=== PATIENT | male | born 1975 | race African-American/Black ===

== ENCOUNTER 2017-07-27 09:14 | Outpatient (CLI) | payer OTHER ==
--- NOTE | 2017-07-27 16:08 | MRI Report ---
EXAM: RIGHT KNEE MRI WITHOUT CONTRAST EXAM DATE: 07/27/2017 10:01 AM. CLINICAL HISTORY: Chronic atraumatic knee pain with intermittent swelling. COMPARISON: None. TECHNIQUE: Multiplanar, multisequence T1-weighted and fluid-sensitive sequences of the knee without c ontrast. Other: None. FINDINGS: Cruciate Ligaments: The anterior and posterior cruciate ligaments appear intact. Medial Meniscus: Intact. No tear is identified. Lateral Meniscus: Intact. No tear is identified. Collateral Ligament: The medial and fibular collateral ligaments appear intact. Bones and Articular Surfaces: Slight degree of surface cartilage irregularity in the medial compartme nt. Severe cartilage loss at the lateral aspect of the patellofemoral compartment with prominent elan inal osteophyte formation and patchy subchondral edema. Prominent lateral subluxation of the patella. Small joint effusion. Moderate-sized popliteal cyst. Ossified body within the posterior joint midlin e appears at least partially fused to the posterior lateral aspect of the medial tibial plateau. Appr oximately 0.8 x 1.8 x 2.0 cm. Extensor Mechanism: The patellar tendon and quadriceps insertion appear intact. Patella serenity. Edema w ithin the lateral infrapatellar fat. IMPRESSION: 1. 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 2. Patellofemoral dysfunction with patella serenity, lateral tracking, chondromalacia and infrapatellar f at pad impingement. [facility] MUSCULOSKELETAL RADIOLOGY SECTION Referring Provider Line: [phone] SITE ID: [id number]
== END 2017-07-27 09:15 | disposition home or self-care (01) ==
LOC: DI 09:14
PROVIDERS: ATTEND Pediatrics
DX: S83.011A Lateral subluxation of right patella, initial encounter (principal); M17.11 Unilateral primary osteoarthritis, right knee; M25.861 Other specified joint disorders, right knee

== ENCOUNTER 2018-01-03 08:41 | Outpatient (CLI) | payer OTHER ==
--- NOTE | 2018-01-03 12:27 | MRI Report ---
EXAM: LEFT KNEE MRI WITHOUT CONTRAST EXAM DATE: 01/03/2018 09:00 AM. CLINICAL HISTORY: Pain in left knee. COMPARISON: None. TECHNIQUE: Multiplanar, multisequence T1-weighted and fluid-sensitive sequences of the knee without c ontrast. Other: None. FINDINGS: Bones: Some marginal osteophytosis seen at the medial aspect of the inferior patellofemoral joint. No fractures.. Articular Cartilage: Some grade 2-3 chondromalacia at the medial aspect of the patellofemoral joint. Some grade 2-3 chondromalacia also seen lateral aspect medial femoral condyle. Lateral compartment is relatively spared. Medial Meniscus: The medial meniscus is intact. Lateral Meniscus: The lateral meniscus is intact. Cruciate Ligaments: The anterior and posterior cruciate ligaments are intact. Collateral Ligaments: The medial collateral and lateral collateral ligamentous structures are intact. Tendons: The quadriceps, patellar, semimembranosus, and popliteus tendons are unremarkable. Musculature: No edema or fatty atrophy. Other: Small joint effusion. Tiny popliteal cyst. No loose bodies. The medial and lateral retinacula are intact. The subcutaneous tissues and fat pads are unremarkable. IMPRESSION: 1. The medial patella shows some grade 2-3 chondromalacia and small amount of marginal arthrosis. Als o noted is some grade 2-3 chondromalacia of the medial femoral condyle. 2. Compressions, collaterals and quadriceps mechanism appear unremarkable. Small joint effusion. No l oose bodies. Tiny popliteal cyst. [facility] MUSCULOSKELETAL RADIOLOGY SECTION Referring Provider Line: [phone] SITE ID: [id number]
== END 2018-01-03 08:42 | disposition home or self-care (01) ==
LOC: DI 08:41
PROVIDERS: ATTEND Orthopaedic Surgery
DX: M22.42 Chondromalacia patellae, left knee (principal); M17.12 Unilateral primary osteoarthritis, left knee; M71.22 Synovial cyst of popliteal space [Baker], left knee

== ENCOUNTER 2020-08-02 09:11 | Outpatient (CLI) | payer BC, OTHER ==
[2020-08-02 12:03] LABS: BASOPHILS % (AUTO) 0.5 %; EOSINOPHILS # (AUTO) 0.1 10^3/uL (0.0-0.7); EOSINOPHILS % (AUTO) 1.8 %; HGB - HEMOGLOBIN 13.7 g/dL (14.0-18.0); LYMPHOCYTES # (AUTO) 1.8 10^3/uL (1.5-3.5); LYMPHOCYTES % (AUTO) 47.4 %; MEAN CORPUSCULAR HEMOGLOBIN 27.8 pg (27.0-31.0); MEAN CORPUSCULAR HGB CONC 32.3 g/dL (32.0-36.0); MONOCYTES # (AUTO) 0.4 10^3/uL (0.0-1.0); MONOCYTES % (AUTO) 10.4 %; NEUTROPHILS # (AUTO) 1.5 10^3/uL (1.5-6.6); NEUTROPHILS % (AUTO) 39.6 %; PLT - PLATELET COUNT 233 10^3/uL (130-450); RED BLOOD COUNT 4.93 10^6/uL (4.70-6.10); RED CELL DISTRIBUTION WIDTH 13.9 % (12.0-15.0); WHITE BLOOD COUNT 3.8 x10^3/uL (4.8-10.8)
[2020-08-02 12:17] LABS: ALBUMIN 4.2 g/dL (3.2-5.5); ALBUMIN/GLOBULIN RATIO 1.2 (1.0-2.2); ALKALINE PHOSPHATASE 36 IU/L (42-121); ALT ALANINE AMINOTRANSFERASE 24 IU/L (10-60); AST ASPARTATE AMINOTRANSFERASE 25 IU/L (10-42); BILIRUBIN,TOTAL 0.7 mg/dL (0.2-1.0); BUN - BLOOD UREA NITROGEN 14 mg/dL (6-20); CALCIUM 9.2 mg/dL (8.5-10.3); CARBON DIOXIDE - CO2 25 mmol/L (21-32); CHLORIDE 102 mmol/L (101-111); CHOL/HDL RATIO 4.1 (<5.0); CHOLESTEROL 268 mg/dL; CREATININE 1.1 mg/dL (0.6-1.2); GLUCOSE 103 mg/dL (70-100); HDL CHOLESTEROL 65 mg/dL; LDL CHOLESTEROL,CALCULATED 189 mg/dL; LDL/HDL RATIO 2.9 (<3.6); SODIUM 137 mmol/L (135-145); TOTAL PROTEIN 7.6 g/dL (6.7-8.2); VLDL CHOLESTEROL 14 mg/dL
== END 2020-08-02 23:59 | disposition home or self-care (01) ==
LOC: LAB.WCP 09:11
PROVIDERS: ATTEND Nurse Practitioner Family
DX: Z00.00 Encounter for general adult medical examination without abnormal findings (principal)
CPT/HCPCS: 36415; 80053; 80061; 83721; 84443; 85025

== ENCOUNTER 2020-10-07 06:30 | Day surgery (SDC) | payer OTHER ==
[2020-10-07] MEDS ORDERED: fentaNYL 250 MCG/5 ML VIAL IVP ONE (06:31)
[2020-10-07] MEDS ORDERED: MIDAZOLAM 2 MG/2 ML VIAL IVP ONE (06:31)
[2020-10-07] MEDS ORDERED: LACTATED RINGERS 1,000 ML IV ONE ×2 (07:09→08:43)
[2020-10-07 09:20] VITALS: BP 141/99
== END 2020-10-07 06:31 | disposition home or self-care (01) ==
LOC: SDS 06:30
PROVIDERS: ATTEND Surgery
PROC: 0DBC8ZZ Excision of Ileocecal Valve, Via Natural or Artificial Opening Endoscopic (ICD-10-PCS; 2020-10-07)
PROC: 0DBL8ZZ Excision of Transverse Colon, Via Natural or Artificial Opening Endoscopic (ICD-10-PCS; 2020-10-07)
PROC: 0DBH8ZZ Excision of Cecum, Via Natural or Artificial Opening Endoscopic (ICD-10-PCS; principal; 2020-10-07 07:30)
DX: Z12.11 Encounter for screening for malignant neoplasm of colon (principal); D12.0 Benign neoplasm of cecum; D12.3 Benign neoplasm of transverse colon; K64.8 Other hemorrhoids
CPT/HCPCS: 45380; 45385; J3010; J7120

== ENCOUNTER 2020-10-11 18:15 | Outpatient (CLI) | payer OTHER ==
--- NOTE | 2020-10-11 10:38 | XRAY Report ---
PROCEDURE: Knee Standing BILAT INDICATIONS: BILATERAL KNEE ARTHRITIS TECHNIQUE: 3 views of the left knee, and 3 views of the right knee. COMPARISON: None. FINDINGS: Bones: No acute fractures or dislocations. No suspicious bony lesions. Tricompartment degenerative arthritis bilaterally. Small osteophytes. Mild bilateral medial compartment joint space loss. Soft tissues: No knee joint effusions. No suspicious soft tissue calcification. IMPRESSION: Mild bilateral knee joint degenerative arthritis. Reviewed by: Jarrod Bangura MD on 10/11/2020 10:36 AM [facility] Approved by: Jarrod Bangura MD on 10/11/2020 10:36 AM PST Station ID: [id number]
== END 2020-10-11 23:59 | disposition home or self-care (01) ==
LOC: DI.N 18:15
PROVIDERS: ATTEND Nurse Practitioner Family
DX: M17.0 Bilateral primary osteoarthritis of knee (principal)

== ENCOUNTER 2020-11-27 07:44 | Outpatient (CLI) | payer OTHER ==
[2020-11-27] MEDS ORDERED: IOVERSOL 320 50 ML VIAL ONE (07:59)
[2020-11-27] MEDS ORDERED: IOVERSOL 320 100 ML VIAL IVP ONE ×2 (07:59→15:23)
--- NOTE | 2020-11-27 09:38 | XRAY Report ---
PROCEDURE: Chest 2 View X-Ray INDICATIONS: BENIGHN NEOPLASM OF LARGE INTESTINE TECHNIQUE: 2 view(s) of the chest. COMPARISON: None. FINDINGS: Surgical changes and devices: None. Lungs and pleura: No pleural effusions or pneumothorax. Lungs are clear. Mediastinum: Mediastinal contours are normal. Heart size is normal. Bones and chest wall: No suspicious bony abnormalities. Soft tissues appear unremarkable. IMPRESSION: Normal for age, no evidence of mass within the lungs, or adenopathy. No contraindication to surgical intervention is seen. Reviewed by: Sergio Terry MD on 11/27/2020 9:36 AM [facility] Approved by: Sergio Terry MD on 11/27/2020 9:36 AM [facility] Station ID: [id number]
--- NOTE | 2020-11-27 12:25 | CT Report ---
PROCEDURE: Abdomen/Pelvis W INDICATIONS: BENIGN NEOPLASM OF LARGE INTESTINE CONTRAST: IV CONTRAST: Optiray 320 ml: 100 PO CONTRAST: Optiray 320 ml50 TECHNIQUE: After the administration of oral and intravenous contrast, 5 mm thick sections acquired from the diap hragms to the symphysis. 5 mm thick coronal and sagittal reformats were acquired. For radiation dos e reduction, the following was used: automated exposure control, adjustment of mA and/or kV accordin g to patient size. COMPARISON: None. FINDINGS: Image quality: Excellent. ABDOMEN: Lung bases: Lung bases are clear. Heart size is normal. Calcified left infrahilar lymph node. Like ly represents chronic granulomatous disease. Solid organs: Liver and spleen are normal in size and enhancement. Gallbladder is unremarkable. Bi liary system is non dilated. Pancreas enhances normally. No adrenal nodules. Kidneys demonstrate n ormal size and enhancement, without hydronephrosis. Peritoneum and bowel: Bowel loops demonstrate normal wall thickness and caliber. No free fluid or a ir. The colonic neoplasm is not clearly identified on the CT images. Sigmoid diverticulosis without e vidence of diverticulitis. Nodes and vessels: No retroperitoneal or mesenteric adenopathy by size criteria. Aorta and inferior vena cava are normal in size. Miscellaneous: No ventral hernias. PELVIS: Genitourinary: Bladder wall thickness is normal. Miscellaneous: No inguinal hernias or adenopathy. Bones: No suspicious bony lesions. No vertebral body compression fractures. Incidental note is made of the presence of a large left paracentral disc protrusion likely impinging on multiple left-sided nerve root structures at L5-S1. IMPRESSION: 1. Incidental note made of a large left paracentral disc protrusion at L5-S1 impinging on multiple le ft-sided nerve root structures. 2. No evidence of metastatic disease. No evidence of acute abdominal process. 3. Sigmoid diverticulosis. Reviewed by: Jarrod Bangura MD on 11/27/2020 12:23 PM PST Approved by: Jarrod Bangura MD on 11/27/2020 12:23 PM PST Station ID: [id number]
[2020-11-27] MEDS ORDERED: IOVERSOL 320 50 ML VIAL PO ONE (15:22)
== END 2020-11-27 07:45 | disposition home or self-care (01) ==
LOC: DI 07:44
PROVIDERS: ATTEND Surgery
DX: D12.6 Benign neoplasm of colon, unspecified (principal); K57.30 Diverticulosis of large intestine without perforation or abscess without bleeding; M51.27 Other intervertebral disc displacement, lumbosacral region
CPT/HCPCS: 36415; 71046; 74177; 80053; 82378; 85025; Q9967

== ENCOUNTER 2020-11-27 07:57 | Outpatient (CLI) | payer OTHER ==
[2020-11-27 08:29] LABS: BASOPHILS % (AUTO) 0.6 %; EOSINOPHILS # (AUTO) 0.1 10^3/uL (0.0-0.7); EOSINOPHILS % (AUTO) 1.7 %; HGB - HEMOGLOBIN 13.5 g/dL (14.0-18.0); LYMPHOCYTES # (AUTO) 1.9 10^3/uL (1.5-3.5); LYMPHOCYTES % (AUTO) 51.9 %; MEAN CORPUSCULAR HEMOGLOBIN 28.1 pg (27.0-31.0); MEAN CORPUSCULAR HGB CONC 32.6 g/dL (32.0-36.0); MEAN CORPUSCULAR VOLUME 86.3 fL (80.0-94.0); MEAN PLATELET VOLUME 10.3 fL (7.4-11.4); MONOCYTES # (AUTO) 0.4 10^3/uL (0.0-1.0); MONOCYTES % (AUTO) 11.9 %; NEUTROPHILS # (AUTO) 1.2 10^3/uL (1.5-6.6); NEUTROPHILS % (AUTO) 33.3 %; PLT - PLATELET COUNT 267 10^3/uL (130-450); WHITE BLOOD COUNT 3.6 x10^3/uL (4.8-10.8)
[2020-11-27 08:48] LABS: ALBUMIN 4.4 g/dL (3.2-5.5); ALBUMIN/GLOBULIN RATIO 1.3 (1.0-2.2); BILIRUBIN,TOTAL 0.6 mg/dL (0.2-1.0); CALCIUM 9.4 mg/dL (8.5-10.3); CREATININE 1.3 mg/dL (0.6-1.2); TOTAL PROTEIN 7.7 g/dL (6.7-8.2)
== END 2020-11-27 07:58 | disposition home or self-care (01) ==
LOC: LAB 07:57
PROVIDERS: ATTEND Surgery
DX: D12.6 Benign neoplasm of colon, unspecified (principal)
CPT/HCPCS: 36415; 80053; 82378; 85025

== ENCOUNTER 2020-12-26 10:05 | Outpatient (CLI) | payer OTHER | END 2020-12-26 10:06 | disposition home or self-care (01) | LOC: LAB 10:05 | PROVIDERS: ATTEND Nurse Practitioner Family | DX: Z01.812 Encounter for preprocedural laboratory examination (principal); Z20.822 Contact with and (suspected) exposure to COVID-19; D12.6 Benign neoplasm of colon, unspecified ==

== ENCOUNTER 2020-12-30 07:45 | Inpatient (IN) | payer OTHER ==
[~2020-12-30 07:45] MED LIST: ACETAMINOPHEN 1,000 MG/100 ML 100 ML IV ONE; CELECOXIB 100 MG CAPSULE PO ONE; CIPROFLOXACIN 400 MG/200 ML 400 MG/200 ML BAG IV ONE; GABAPENTIN 400 MG CAPSULE ONE; HEPARIN 5,000 UNIT/ML VIAL ONE; metroNIDAZOLE 500 MG/100 ML 500 MG/100 ML BAG ONE
[2020-12-30] MEDS ORDERED: LACTATED RINGERS 1,000 ML IV ONE ×3 (08:25→14:03)
[2020-12-30] MEDS ORDERED: BUPIVACAINE 0.5% PF 30 ML VIAL ONE (08:43)
--- NOTE | 2020-12-30 08:55 | ANESTHESIA ---
Pre-Anesthesia VS, & Labs - Diagnosis Sessile ileocecal valve polyp - Procedure colonscopy, Lap right colectomy, possible open Vital Signs: Temp Pulse Resp BP Pulse Ox 36.3 C L 57 L 16 128/81 H 100 12/30/20 07:50 12/30/20 07:50 12/30/20 07:50 12/30/20 07:50 12/30/20 07:50 Height: 6 ft Weight (kg): 113.4 kg Body Mass Index: 33.9 BMI Classification: Obese - NPO >8 hours - Lab Results Current Lab Results: Laboratory Tests 12/30/20 08:26: POC Whole Bld Glucose 102 H Lab results reviewed: Yes Home Medications and Allergies No Known Home Medications 10/04/20 Allergies/Adverse Reactions: Allergies Allergy/AdvReac Type Severity Reaction Status Date / Time No Known Drug Allergies Allergy Verified 12/30/20 08:06 Anes History & Medical History - Anesthetic History Anesthesia Complications: reports: No previous complications Family history of Anesthesia Complications: Denies Family history of Malignant Hyperthermia: Denies - Medical History Cardiovascular: reports: None Pulmonary: reports: Sleep apnea, CPAP use Gastrointestinal: reports: None Urinary: reports: None Musculoskeletal: reports: Osteoarthritis Endocrine/Autoimmune: reports: None Skin: reports: None - Surgical History General: Colonoscopy, Other Exam General: Alert, Oriented x3, Cooperative, No acute distress Dental: WNL Mouth Openin Fingerbreadth Neck Mobility: Normal Mallampati classification: I Respiratory: Lungs clear, Normal breath sounds, No respiratory distress, No accessory muscle use Cardiovascular: Regular rate, Normal S1, Normal S2, No murmurs Plan Anesthesia Type: General, Transverse Abdominis Plane (TAP) Block Regional Block: Per Surgeon's request for Post Op pain control Consent for Procedure(s) Verified and Reviewed: Yes Code Status: Attempt Resuscitation ASA classification: 2-Mild systemic disease Is this case an emergency?: No
[2020-12-30] MEDS ORDERED: MIDAZOLAM 2 MG/2 ML VIAL ONE (09:20)
[2020-12-30] MEDS ORDERED: fentaNYL 100 MCG/2 ML VIAL ONE (09:20)
[2020-12-30] MEDS ORDERED: PROPOFOL 200 MG/20 ML VIAL IVP ONE (09:22)
[2020-12-30] MEDS ORDERED: LIDOCAINE-MPF 2% 5 ML VIAL ONE (09:22)
[2020-12-30] MEDS ORDERED: ROCURONIUM 50 MG/5 ML VIAL ONE ×2 (09:22→12:45)
[2020-12-30] MEDS ORDERED: BUPIVACAINE 0.5% PF 30 ML VIAL INFIL ONE ×2 (09:34)
[2020-12-30] MEDS ORDERED: DEXAMETHASONE 4 MG/ML VIAL ONE (09:44)
[2020-12-30] MEDS ORDERED: ONDANSETRON 4 MG/2 ML VIAL ONE (09:44)
[2020-12-30] MEDS ORDERED: ePHEDrine 50 MG/ML VIAL IVP PRN (09:51)
[2020-12-30] MEDS ORDERED: METOCLOPRAMIDE 10 MG/2 ML VIAL IVP PRN (09:51)
[2020-12-30] MEDS ORDERED: NALOXONE 0.4 MG/ML VIAL IVP PRN (09:51)
[2020-12-30] MEDS ORDERED: ONDANSETRON 4 MG/2 ML VIAL IVP PRN ×2 (09:51→13:29)
[2020-12-30] MEDS ORDERED: fentaNYL 100 MCG/2 ML VIAL IVP PRN (09:51)
[2020-12-30] MEDS ORDERED: HYDROmorphone 0.5 MG/0.5 ML SYRINGE IVP PRN ×2 (09:51→13:29)
[2020-12-30] MEDS ORDERED: ATROPINE ABBOJECT 1 MG/10 ML SYRINGE IVP PRN (09:51)
[2020-12-30] MEDS ORDERED: MORPHINE 2 MG/ML CARPUJECT IVP PRN (09:51)
[2020-12-30] MEDS ORDERED: LACTATED RINGERS 1,000 ML IV SCH (10:00)
[2020-12-30] MEDS ORDERED: HYDROmorphone 1 MG/ML CARPUJECT ONE ×2 (10:37→12:30)
[2020-12-30] MEDS ORDERED: SUGAMMADEX 200 MG/2 ML VIAL IVP ONE (12:55)
[2020-12-30] MEDS ORDERED: ROPIVACAINE 0.5% PF 20 ML AMPULE ONE (13:02)
[2020-12-30] MEDS ORDERED: SODIUM CHLORIDE 0.9% 20 ML ONE (13:04)
[2020-12-30] MEDS ORDERED: ACETAMINOPHEN 1,000 MG/100 ML 100 ML IV ONE (13:29)
[2020-12-30] MEDS ORDERED: oxyCODONE 5 MG TABLET PO PRN (13:29)
--- NOTE | 2020-12-30 13:41 | OPERATIVE REPORT ---
Operative Report - General Procedure Date: 12/30/20 Planned Procedure: 1. Plan combined endoscopic laparoscopic surgical intervention for unresectable ileocecal valve polyp 2. Diagnostic laparoscopy with right colonic mobilization 3. Intraoperative colonoscopy with planned complex polypectomy 4. Umbilical hernia repair Pre-Op Diagnosis: Unresectable ileocecal valve polyp consistent with adenomatous change. Procedure Performed: 1. Diagnostic laparoscopy 2. Combined endoscopic laparoscopic surgery 3. Intraoperative colonoscopy confirming ileocecal valve polyp 4. Right colectomy 5. Intracorporeal side to side isoperistaltic anastomosis 6. Air leak by CO2 insufflation per anus 7. Umbilical hernia repair 8. Tap block by anesthesia Post Op Diagnosis: Unresectable ileocecal valve adenomatous polyp not amendable to endoscopic - Procedure Note Primary Surgeon: Kari Secondary Surgeon: Tripp Anesthesia Provider: Floresita Anesthesia Technique: General ET tube, Local Pathology: 1. Anastomotic margin 2. Terminal ileum cecum appendix and ascending colon Estimated Blood Loss (mL): 50 Drain/Tube Type: Castillo drain Indications: 45-year-old male with ileocecal valve adenomatous polyp not amendable to endoscopic resection Findings: 1. Ileocecal valve adenomatous polyp not amendable to endoscopic resection 2. Patent side to side isoperistaltic functional end-to-end anastomosis 3. Enterotomy/colotomy closed with interrupted traction sutures with Endo MATTHIEU stapler 4. Insufflation with Perina's carbon dioxide revealed a small area of stapler dysfunction that was repaired by interrupted laparoscopic Vicryl 5. Small area stapled for reinforcement with fat not able to be removed laparoscopically 6. Intracorporeal anastomosis with no complication upon final insufflation under saline immersion 7. Extensive irrigation aspirated clear with high ligation of the ileocolic 8. Umbilical hernia repair Complications: NONE - Other Other Information/Narrative: Pending final report
[2020-12-30] MEDS ORDERED: CIPROFLOXACIN 400 MG/200 ML 400 MG/200 ML BAG IV SCH (14:00)
[2020-12-30] MEDS ORDERED: metroNIDAZOLE 500 MG/100 ML 500 MG/100 ML BAG IV SCH (14:00)
--- NOTE | 2020-12-30 14:10 | ANESTHESIA POST OP EVALUATION ---
Anesthesia Post Eval - Post Anesthesia Eval Vitals: Last Vital Signs Temp 36.6 C 12/30/20 13:37 Pulse 93 12/30/20 14:05 Resp 18 12/30/20 14:05 BP 158/108 H 12/30/20 14:05 Pulse Ox 100 12/30/20 14:05 CV Function Including HR & BP: positive: Stable Pain Control: positive: Satisfactory Nausea & Vomiting: positive: Negative Mental Status: positive: Patient Participates Respiratory Status: Airway Patent Hydration Status: Satisfactory
[2020-12-30] MEDS: metroNIDAZOLE 500 MG/100 ML 500 MG/100 ML BAG IV SCH ×2 (15:17→21:08)
[2020-12-30] MEDS: D5NS W/20 MEQ KCL 1,000 ML IV SCH (15:17)
[2020-12-30] MEDS: METOCLOPRAMIDE 10 MG/2 ML VIAL IVP SCH (17:06)
[2020-12-30] MEDS: KETOROLAC 15 MG/ML VIAL IVP SCH (17:08)
[2020-12-30] MEDS: methocarbamoL 500 MG TABLET PO SCH (17:08)
--- NOTE | 2020-12-30 18:26 | PHARMACY PROGRESS NOTE ---
- Best Possible Medication History Admit Date and Time: 12/30/20 133 Processed by: Pharmacy Medication History completed: Yes Patient Interview: Completed Secondary Source(s): Pharmacy records, Insurance records As the person ultimately responsible for medication therapy, providers are able to order a medication from an existing home medication list in [facility] via the "Reconcile Routine" prior to Confirmation of that medication by computer support analyst. Such practice is discouraged except when the physician, in their clinical judgment, deems that a medical need exists for a medication without regard to previous use.
[2020-12-30] MEDS: CIPROFLOXACIN 400 MG/200 ML 400 MG/200 ML BAG IV SCH (19:06)
[2020-12-30] MEDS: DOCUSATE SODIUM 100 MG CAPSULE PO SCH (21:07)
[2020-12-30] MEDS: polyethylene glycoL 3350 17 GM PACKET PO SCH (21:07)
[2020-12-31] MEDS: KETOROLAC 15 MG/ML VIAL IVP SCH ×4 (00:22→17:58)
[2020-12-31] MEDS: METOCLOPRAMIDE 10 MG/2 ML VIAL IVP SCH ×4 (00:22→17:59)
[2020-12-31] MEDS: D5NS W/20 MEQ KCL 1,000 ML IV SCH ×3 (00:22→19:23)
[2020-12-31] MEDS: methocarbamoL 500 MG TABLET PO SCH ×4 (00:22→17:59)
[2020-12-31 05:20] LABS: BASOPHILS % (AUTO) 0.1 %; EOSINOPHILS # (AUTO) 0.2 10^3/uL (0.0-0.7); EOSINOPHILS % (AUTO) 1.9 %; HCT - HEMATOCRIT 38.6 % (42.0-52.0); HGB - HEMOGLOBIN 12.7 g/dL (14.0-18.0); LYMPHOCYTES # (AUTO) 1.3 10^3/uL (1.5-3.5); LYMPHOCYTES % (AUTO) 16.7 %; MEAN CORPUSCULAR HGB CONC 32.9 g/dL (32.0-36.0); MEAN CORPUSCULAR VOLUME 85.2 fL (80.0-94.0); MEAN PLATELET VOLUME 10.4 fL (7.4-11.4); MONOCYTES # (AUTO) 0.6 10^3/uL (0.0-1.0); MONOCYTES % (AUTO) 7.8 %; NEUTROPHILS # (AUTO) 5.9 10^3/uL (1.5-6.6); NEUTROPHILS % (AUTO) 73.3 %; PLT - PLATELET COUNT 218 10^3/uL (130-450); RED BLOOD COUNT 4.53 10^6/uL (4.70-6.10); RED CELL DISTRIBUTION WIDTH 14.3 % (12.0-15.0)
[2020-12-31 05:32] LABS: ALBUMIN 3.9 g/dL (3.2-5.5); ALBUMIN/GLOBULIN RATIO 1.3 (1.0-2.2); BILIRUBIN,TOTAL 0.6 mg/dL (0.2-1.0); CALCIUM 8.4 mg/dL (8.5-10.3); CREATININE 1.1 mg/dL (0.6-1.2); MAGNESIUM 1.8 mg/dL (1.7-2.8); POTASSIUM 3.2 mmol/L (3.5-5.0); TOTAL PROTEIN 6.8 g/dL (6.7-8.2)
[2020-12-31] MEDS: metroNIDAZOLE 500 MG/100 ML 500 MG/100 ML BAG IV SCH ×3 (06:14→22:10)
[2020-12-31] MEDS: PANTOPRAZOLE 40 MG TABLET PO SCH (07:26)
[2020-12-31] MEDS: polyethylene glycoL 3350 17 GM PACKET PO SCH ×2 (09:15→22:17)
[2020-12-31] MEDS: ENOXAPARIN 40 MG/0.4 ML SYRINGE SUBQ SCH (09:16)
[2020-12-31] MEDS: DOCUSATE SODIUM 100 MG CAPSULE PO SCH ×2 (09:16→22:17)
[2020-12-31] MEDS: CIPROFLOXACIN 400 MG/200 ML 400 MG/200 ML BAG IV SCH ×2 (09:20→20:27)
[2020-12-31] MEDS: POTASSIUM CHLOR 10 MEQ/100 ML 10 MEQ/100 ML BAG IV SCH ×3 (11:06→13:20)
--- NOTE | 2020-12-31 18:55 | PROVIDER PROGRESS NOTE ---
Progress Note Subjective Postoperative day #1 status post attempted CELS procedure converted to laparoscopic right colectomy. See below. Awaiting bowel function with no flatus nor bowel movement. Positive trial of void. Appropriate pain control. Pre-Op Diagnosis: Unresectable ileocecal valve polyp consistent with adenomatous change. Procedure Performed: 1. Diagnostic laparoscopy 2. Combined endoscopic laparoscopic surgery 3. Intraoperative colonoscopy confirming ileocecal valve polyp 4. Right colectomy 5. Intracorporeal side to side isoperistaltic anastomosis 6. Air leak by CO2 insufflation per anus 7. Umbilical hernia repair 8. Tap block by anesthesia Post Op Diagnosis: Unresectable ileocecal valve adenomatous polyp not amendable to endoscopic Objective Afebrile hemodynamically acceptable General Appearance: positive: No acute distress Eyes Bilateral: positive: Normal inspection ENT: positive: ENT inspection nml Neck: positive: Nml inspection Respiratory: positive: Chest non-tender, No respiratory distress, Breath sounds nml. negative: Wheezes, Rales, Rhonchi Cardiovascular: positive: Regular rate & rhythm Abdomen: positive: No distention, Other. negative: Guarding, Rebound Extremities: positive: Non-tender, Full ROM, Nml appearance Neurologic/Psychiatric: positive: Oriented x3, CN's nml (2-12) Abdomen soft, nontender/appropriately tender, mildly distended, no rebound, no guarding. Castillo drain with serosanguineous output. Dressings clean dry and int act. Impression/Plan Postoperative day #1 status post above listed procedures. Patient awaiting bowel function. Unresectable polyp for which CELS was not possible. Plan is as follows: (1) GI - IVF, bowel regimen, advance diet as tolerated. GI ppx. [Anticipate ileus]. Opiate sparring analgesia. (2) SURGERY - continue HECTOR, no significant local wound care, awaiting pathology. (3) Renal/Lytes - continue IVF. Renal indices within normal limits. (4) Respiratory - O2 as necessary. Continue IS. (5) Heme - Will continue with DVT ppx. H/H stable. (6) Cardiovascular - HD acceptable. (7) Neuro - Opiate sparring analgesia. Antispasmodics with Robaxin. [Toradol]. Neuropathic agents. (8) Immune/Infectious Disease - no indication for antibiotics.
[2021-01-01] MEDS: METOCLOPRAMIDE 10 MG/2 ML VIAL IVP SCH ×4 (00:04→17:44)
[2021-01-01] MEDS: methocarbamoL 500 MG TABLET PO SCH ×4 (00:04→17:43)
[2021-01-01] MEDS: KETOROLAC 15 MG/ML VIAL IVP SCH ×4 (00:04→17:43)
[2021-01-01 04:52] LABS: BASOPHILS % (AUTO) 0.4 %; EOSINOPHILS # (AUTO) 0.1 10^3/uL (0.0-0.7); EOSINOPHILS % (AUTO) 0.9 %; HCT - HEMATOCRIT 36.3 % (42.0-52.0); HGB - HEMOGLOBIN 11.9 g/dL (14.0-18.0); LYMPHOCYTES # (AUTO) 1.2 10^3/uL (1.5-3.5); LYMPHOCYTES % (AUTO) 21.9 %; MEAN CORPUSCULAR HEMOGLOBIN 28.5 pg (27.0-31.0); MEAN CORPUSCULAR HGB CONC 32.8 g/dL (32.0-36.0); MEAN CORPUSCULAR VOLUME 86.8 fL (80.0-94.0); MEAN PLATELET VOLUME 10.9 fL (7.4-11.4); MONOCYTES # (AUTO) 0.5 10^3/uL (0.0-1.0); MONOCYTES % (AUTO) 8.8 %; NEUTROPHILS # (AUTO) 3.8 10^3/uL (1.5-6.6); NEUTROPHILS % (AUTO) 67.8 %; PLT - PLATELET COUNT 204 10^3/uL (130-450); RED BLOOD COUNT 4.18 10^6/uL (4.70-6.10); RED CELL DISTRIBUTION WIDTH 14.3 % (12.0-15.0); WHITE BLOOD COUNT 5.7 x10^3/uL (4.8-10.8)
[2021-01-01 05:10] LABS: ALBUMIN 3.5 g/dL (3.2-5.5); ALBUMIN/GLOBULIN RATIO 1.2 (1.0-2.2); BILIRUBIN,TOTAL 0.5 mg/dL (0.2-1.0); CALCIUM 8.3 mg/dL (8.5-10.3); CREATININE 1.2 mg/dL (0.6-1.2); MAGNESIUM 1.9 mg/dL (1.7-2.8); PHOSPHORUS 1.7 mg/dL (2.5-4.6); POTASSIUM 3.7 mmol/L (3.5-5.0); TOTAL PROTEIN 6.4 g/dL (6.7-8.2)
[2021-01-01] MEDS: D5NS W/20 MEQ KCL 1,000 ML IV SCH (05:25)
[2021-01-01] MEDS: PANTOPRAZOLE 40 MG TABLET PO SCH (05:26)
[2021-01-01] MEDS: metroNIDAZOLE 500 MG/100 ML 500 MG/100 ML BAG IV SCH (05:26)
[2021-01-01] MEDS: ENOXAPARIN 40 MG/0.4 ML SYRINGE SUBQ SCH (08:49)
[2021-01-01] MEDS: CIPROFLOXACIN 400 MG/200 ML 400 MG/200 ML BAG IV SCH (08:49)
[2021-01-01] MEDS: DOCUSATE SODIUM 100 MG CAPSULE PO SCH (08:49)
[2021-01-01] MEDS: polyethylene glycoL 3350 17 GM PACKET PO SCH (08:50)
[2021-01-01] MEDS ORDERED: D5NS W/20 MEQ KCL 1,000 ML IV SCH (10:54)
[2021-01-01 16:04] VITALS: BP 146/96
--- NOTE | 2021-01-01 20:05 | Discharge Plan ---
Discharge Plan Problem Reviewed?: Yes Disposition: 01 Home, Self Care Condition: Good Prescriptions: methocarbamoL [Robaxin] 500 mg PO Q6HR PRN #25 tab PRN Reason: Spasms Pantoprazole [Protonix] 40 mg PO QDAC #30 tab traMADol [Ultram] 50 mg PO Q4H PRN #25 tab PRN Reason: Pain Diet: Soft Activity Restrictions: Wt Bearing as Tolerated Shower Restrictions: No Driving Restrictions: Yes (No driving while taking narcotics) Weight Bearing: Full Weight Instruction Topics: Colorectal Surg Recovery, Colon Surg Laparoscopic, Hernia Repair Open [facility] Concerns: For pain management the patient should proceed as follows: 1. Avoid nonsteroidals at this time, no aspirin, ibuprofen, or naproxen. 2. May take acetaminophen [id number] for discomfort. 3. Patient sent home with antispasmodic agents including Robaxin/methocarbamol 4. Tramadol can be taken for breakthrough as needed. Plan of Treatment: DISCHARGE INSTRUCTIONS TEMPLATE: Patient to return to clinic on Wednesday for drain removal. Patient to have drain teaching at the time of discharge. No heavy lifting, pushing, or pulling. Stairs are allowed, no strenuous/exertional activities. 5-10lbs weight carrying limit (i.e. gallon of milk) If provided, abdominal binder while out of bed and while ambulating. Call or proceed to clinic/ER for fevers, severe pain, nausea, vomiting, inability to pass flatus/stool, bleeding, wound redness/discharge, weakness, excessively loose stool/diarrhea, or for any other reasonably worrisome symptom or concern. Soft diet, no raw vegetables, avoid high fiber foods. Colace 100mg by mouth twice to three times daily while taking narcotic pain medication. If no bowel movement in 24-48hr, may take 17g Miralax in 8oz water twice daily until bowel movement. May shower, no submersive bathing. Follow up in clinic in 2-4 weeks for wound check and staple removal. No driving while taking narcotic pain medications. Follow up with primary care provider and/or medical subspecialist following discharge as well. Patient not allowed to drive self today or within 24 hours of surgery. Additional Instructions or Follow Up instructions: Patient to return to clinic on Wednesday for drain removal. Patient to have drain teaching at the time of discharge. No Smoking: If you smoke, Please STOP! Call for help. Follow-up with: LEXI SANTIZO, MSN, [employer] [Primary Care Provider] - Rylan Pierce MD [Provider Admit Priv/Credential] -
--- NOTE | 2021-01-01 20:05 | Discharge Plan ---
Discharge Plan No Smoking: If you smoke, Please STOP! Call for help. Follow-up with: LEXI SANTIZO, MSN, ACLS SPECIALIST [Primary Care Provider] -
--- NOTE | 2021-01-01 20:17 | DISCHARGE SUMMARY ---
"Discharge Summary Admit Date: 01/27/21 Discharge Date: 01/29/21 Discharging Provider: Kari Code Status: Attempt Resuscitation Condition at Discharge: Good Discharge Disposition: 01 Home, Self Care - DIAGNOSES Admission Diagnoses: 1. Obesity 2. Adenomatous polyp (unresectable) 3. Tortuous colon 4. Ileocecal valve polyp Discharge Diagnoses with Status of Each Condition: 1. Obesity - STABLE 2. Adenomatous polyp (unresectable) - RESECTED/RESOLVED 3. Tortuous colon - RESECTED/RESOLVED (Partial colectomy) 4. Ileocecal valve polyp - RESECTED/RESOLVED - HPI History of Present Illness: 45-year-old male who on colonoscopy was noted for a large ileocecal valve polyp that was not amendable secondary to location for endoscopic resection. Empirically, he had underwent preoperative staging CT in the event of malignancy which was without any evidence of extracolonic metastases. Patient had no significant comorbid states. He was planned for CELS (combined endoscopic laparoscopic surgery) towards attempt at preservation of colonic length understanding that if with second surgeon we are unable to maneuver the bowel in order to resect this challenging polyp we would ultimately proceed with formal right colectomy. Risk and benefit discussed questions answered informed consent was obtained. - CONSULTS | PROCEDURES Consultations: None Procedures: Pre-Op Diagnosis: Unresectable ileocecal valve polyp consistent with adenomatous change. Procedure Performed: 1. Diagnostic laparoscopy 2. Combined endoscopic laparoscopic surgery 3. Intraoperative colonoscopy confirming ileocecal valve polyp 4. Right colectomy 5. Intracorporeal side to side isoperistaltic anastomosis 6. Air leak by CO2 insufflation per anus 7. Umbilical hernia repair 8. Tap block by anesthesia Post Op Diagnosis: Unresectable ileocecal valve adenomatous polyp not amendable to CELS; successful right colectomy, patent, viable anastomosis. - HOSPITAL COURSE Hospital Course: Patient admitted with endoscopically unresectable ileocecal valve polyp. Patient underwent operative intervention as listed in the electronic medical record. Attempted for CELS to avoid resection (see operative report) however ultimately necessitated conversion to a laparoscopic right colectomy with intracorporeal anastomosis [id number] functional end-to-end isoperistaltic. Tolerated procedure well for which there was no complication. Postoperatively the patient was managed for postoperative analgesia and resumption of bowel function. Patient had successfully passed trial of void. Tolerated oral intake without any complication. Denied nausea denied vomiting. Was advanced for diet without any complication after initial brief ileus as anticipated. Was counseled would maintain drain in the postoperative period and plan for removal as outpatient. Discharge instructions given. Analgesia with tramadol provided at time of discharge. Patient plan for follow-up and will be notified of pathology once returned. See discharge instructions below. - ALLERGIES Allergies/Adverse Reactions: Allergies Allergy/AdvReac Type Severity Reaction Status Date / Time No Known Drug Allergies Allergy Verified 12/30/20 08:06 - MEDICATIONS Home Medications: Ambulatory Orders Medication Instructions Recorded Confirmed Docusate Sodium 100Mg Capsule 100 mg PO BID 01/01/21 [Colace 100Mg Capsule] Pantoprazole [Protonix] 40 mg PO QDAC #30 tab 01/01/21 methocarbamoL [Robaxin] 500 mg PO Q6HR PRN #25 tab 01/01/21 polyethylene glycoL 3350 [Miralax] 17 gm PO BID packet 01/01/21 traMADol [Ultram] 50 mg PO Q4H PRN #25 tab 01/01/21 - PHYSICAL EXAM AT DISCHARGE General Appearance: positive: No acute distress, Alert Eyes Bilateral: positive: Normal inspection, PERRL, EOMI ENT: positive: ENT inspection nml Neck: positive: Nml inspection Respiratory: positive: Chest non-tender Cardiovascular: positive: Regular rate & rhythm Abdomen: positive: Non-tender, No distention, Other (Abdominal Exam:). negative : Tenderness, Guarding, Rebound Skin: positive: Color nml Extremities: positive: Non-tender, Full ROM, Nml appearance Neurologic/Psychiatric: positive: Oriented x3, CN's nml (2-12), Motor nml, Sensation nml, Mood/affect nml - LABS Result Diagrams: 01/01/21 04:17 01/01/21 04:17 - FOLLOW UP Follow Up: DISCHARGE INSTRUCTIONS TEMPLATE: Patient to return to clinic on Wednesday for drain removal. Patient to have drain teaching at the time of discharge. No heavy lifting, pushing, or pulling. Stairs are allowed, no strenuous/exert ional activities. 5-10lbs weight carrying limit (i.e. gallon of milk) If provided, abdominal binder while out of bed and while ambulating. Call or proceed to clinic/ER for fevers, severe pain, nausea, vomiting, inability to pass flatus/stool, bleeding, wound redness/discharge, weakness, excessively loose stool/diarrhea, or for any other reasonably worrisome symptom or concern. Soft diet, no raw vegetables, avoid high fiber foods. Colace 100mg by mouth twice to three times daily while taking narcotic pain medication. If no bowel movement in 24-48hr, may take 17g Miralax in 8oz water twice daily until bowel movement. May shower, no submersive bathing. Follow up in clinic in 2-4 weeks for wound check and staple removal. No driving while taking narcotic pain medications. Follow up with primary care provider and/or medical subspecialist following discharge as well. Patient not allowed to drive self today or within 24 hours of surgery. Additional Instructions or Follow Up instructions: Patient to return to clinic on Wednesday for drain removal. Patient to have drain teaching at the time of discharge. - TIME SPENT Time Spent in Discharge (Minutes): 60"
== END 2021-01-01 20:35 | disposition home or self-care (01) | DRG 331 ==
LOC: SDS 07:45 → MS3 13:32
PROVIDERS: ADMIT Surgery; ATTEND Surgery
PROC: 0DTF4ZZ Resection of Right Large Intestine, Percutaneous Endoscopic Approach (ICD-10-PCS; principal; 2020-12-30 08:45)
PROC: 0DJD8ZZ Inspection of Lower Intestinal Tract, Via Natural or Artificial Opening Endoscopic (ICD-10-PCS; 2020-12-30 08:45)
DX: D12.0 Benign neoplasm of cecum (principal); K66.0 Peritoneal adhesions (postprocedural) (postinfection); K57.30 Diverticulosis of large intestine without perforation or abscess without bleeding; K63.89 Other specified diseases of intestine; K42.9 Umbilical hernia without obstruction or gangrene; G47.30 Sleep apnea, unspecified; M51.17 Intervertebral disc disorders with radiculopathy, lumbosacral region; E66.9 Obesity, unspecified; Z68.33 Body mass index [BMI] 33.0-33.9, adult
CPT/HCPCS: 36415; 80053; 83735; 84100; 85025; 88309; 88360; A9270; J0131; J1170; J1650; J2765; J7120

== ENCOUNTER 2021-01-21 23:41 | Inpatient (IN) | payer OTHER ==
[2021-01-21] MEDS ORDERED: SODIUM CHLORIDE 0.9% 1,000 ML IV STA (23:49)
[2021-01-21] MEDS ORDERED: MORPHINE 10 MG/ML VIAL IVP STA (23:54)
[2021-01-21] MEDS ORDERED: FAMOTIDINE 20 MG/2 ML VIAL IVP STA (23:57)
[2021-01-22 00:21] LABS: BASOPHILS % (AUTO) 0.2 %; EOSINOPHILS % (AUTO) 0.4 %; HCT - HEMATOCRIT 41.6 % (42.0-52.0); HGB - HEMOGLOBIN 13.9 g/dL (14.0-18.0); LYMPHOCYTES # (AUTO) 1.7 10^3/uL (1.5-3.5); LYMPHOCYTES % (AUTO) 29.5 %; MEAN CORPUSCULAR HEMOGLOBIN 27.9 pg (27.0-31.0); MEAN CORPUSCULAR HGB CONC 33.4 g/dL (32.0-36.0); MEAN CORPUSCULAR VOLUME 83.4 fL (80.0-94.0); MEAN PLATELET VOLUME 10.5 fL (7.4-11.4); MONOCYTES # (AUTO) 0.6 10^3/uL (0.0-1.0); MONOCYTES % (AUTO) 10.5 %; NEUTROPHILS # (AUTO) 3.3 10^3/uL (1.5-6.6); PLT - PLATELET COUNT 441 10^3/uL (130-450); RED BLOOD COUNT 4.99 10^6/uL (4.70-6.10); RED CELL DISTRIBUTION WIDTH 13.4 % (12.0-15.0); WHITE BLOOD COUNT 5.6 x10^3/uL (4.8-10.8)
[2021-01-22] MEDS ORDERED: IOVERSOL 320 100 ML VIAL IVP ONE ×2 (00:24→01:48)
[2021-01-22] MEDS ORDERED: IOPAMIDOL-300 50 ML VIAL ONE (00:25)
[2021-01-22 00:34] LABS: ALBUMIN 4.3 g/dL (3.2-5.5); ALBUMIN/GLOBULIN RATIO 1.2 (1.0-2.2); BILIRUBIN,TOTAL 0.8 mg/dL (0.2-1.0); CALCIUM 9.4 mg/dL (8.5-10.3); CREATININE 1.3 mg/dL (0.6-1.2); POTASSIUM 3.6 mmol/L (3.5-5.0)
[2021-01-22] MEDS ORDERED: IOPAMIDOL-300 50 ML VIAL PO ONE (01:48)
--- NOTE | 2021-01-22 01:58 | ED Physician Documentation ---
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 Alamo. Patient states that since that time he has had some mild constipation and decreased appetite and developed nonbloody nonbilious nausea vomiting today that progressed to 2 episodes of bloody vomitus intermixed with oatmeal that he has been eating. He also is having 4/10 midline upper abdominal pain that is waxing and waning in severity but constant, aching, nonradiating and worse with vomiting. Patient is supposed to get a CT of the abdomen tomorrow with Dr. Alamo as an outpatient. He denies fevers, urinary symptoms, abdominal wound site infection. Last BM was today and it was dark brown and hard. Denies blood in stool. Review of Systems Ten Systems: 10 systems reviewed and negative Constitutional: denies: Fever, Chills Respiratory: denies: Dyspnea, Cough GI: reports: Abdominal Pain, Nausea, Vomiting, Constipation. denies: Diarrhea : denies: Dysuria PD PAST MEDICAL HISTORY - Past Medical History Past Medical History: Yes Cardiovascular: None Respiratory: Sleep apnea, CPAP use Endocrine/Autoimmune: None GI: None : None HEENT: None Psych: None Musculoskeletal: Osteoarthritis Derm: None - Past Surgical History Past Surgical History: Yes General: Colonoscopy, Other - Present Medications Home Medications: Ambulatory Orders Medication Instructions Recorded Confirmed Docusate Sodium 100Mg Capsule 100 mg PO BID 01/01/21 [Colace 100Mg Capsule] Pantoprazole [Protonix] 40 mg PO QDAC #30 tab 01/01/21 methocarbamoL [Robaxin] 500 mg PO Q6HR PRN #25 tab 01/01/21 polyethylene glycoL 3350 [Miralax] 17 gm PO BID packet 01/01/21 traMADol [Ultram] 50 mg PO Q4H PRN #25 tab 01/01/21 - Allergies Allergies/Adverse Reactions: Allergies Allergy/AdvReac Type Severity Reaction Status Date / Time No Known Drug Allergies Allergy Verified 01/21/21 23:54 - Social History Does the pt smoke?: No Smoking Status: Never smoker Does the pt drink ETOH?: No Does the pt have substance abuse?: No PD ED PE NORMAL - Vitals Vital signs reviewed: Yes - General General: Alert and oriented X 3, No acute distress, Well developed/nourished - HEENT HEENT: Atraumatic, PERRL, EOMI - Cardiac Cardiac: RRR - Respiratory Respiratory: No respiratory distress, Clear bilaterally - Abdomen Abdomen: Non tender, Non distended, Other (discomfort to epigastric palpation. abdominal laparoscopic wound sites healing well) - Derm Derm: Normal color, Warm and dry - Extremities Extremities: No deformity, No edema - Neuro Neuro: Alert and oriented X 3 - Psych Psych: Normal mood, Normal affect Results - Vitals Vitals: Vital Signs - 24 hr 01/21/21 01/22/21 23:45 02:05 Temperature 37.3 C Heart Rate 102 H 69 Respiratory 18 18 Rate Blood Pressure 154/115 H 143/103 H O2 Saturation 97 98 Oxygen O2 Source Room air - Labs Labs: Laboratory Tests 01/22/21 01/22/21 00:15 00:15 WBC 5.6 RBC 4.99 Hgb 13.9 L Hct 41.6 L MCV 83.4 MCH 27.9 MCHC 33.4 RDW 13.4 Plt Count 441 MPV 10.5 Neut # (Auto) 3.3 Lymph # (Auto) 1.7 Gates # (Auto) 0.6 Eos # (Auto) 0.0 Baso # (Auto) 0.0 Absolute Nucleated RBC 0.00 Nucleated RBC % 0.0 Sodium 134 L Potassium 3.6 Chloride 97 L Carbon Dioxide 24 Anion Gap 13.0 BUN 13 Creatinine 1.3 H Estimated GFR (MDRD) 72 L Glucose 132 H Calcium 9.4 Total Bilirubin 0.8 AST 14 ALT 13 Alkaline Phosphatase 65 Total Protein 8.0 Albumin 4.3 Globulin 3.7 Albumin/Globulin Ratio 1.2 Lipase 28 PD MEDICAL DECISION MAKING - ED course ED course: 45-year-old man presents with bloody vomitus this evening. Will obtain CT with oral contrast and IV contrast and reevaluate. Dr. Alamo is production sorter this evening so will touch base when we get results. patient with sbo on ct. d/w Dr. Pierce - will admit and see him in the AM. ng tube placed. Departure - Departure Disposition: [facility] DC/Xfer Clinical Impression: Small bowel obstruction, Nausea and vomiting, Abdominal pain Condition: Stable
[2021-01-22] MEDS ORDERED: SODIUM CHLORIDE FLUSH 0.9% 10 ML SYRINGE IVP PRN (03:13)
[2021-01-22] MEDS ORDERED: ONDANSETRON 4 MG/2 ML VIAL IVP PRN (03:13)
[2021-01-22 04:00] LABS: B. PARAPERTUSSIS- RESP PCR PAN NOT DETECTED; B. PERTUSSIS- RESP PCR PANEL NOT DETECTED; C. PNEUMONIAE- RESP PCR PANEL NOT DETECTED; CORONAVIRUS 229E-RESP PCR NOT DETECTED; CORONAVIRUS HKU1-RESP PCR NOT DETECTED; CORONAVIRUS NL63-RESP PCR NOT DETECTED; CORONAVIRUS OC43-RESP PCR NOT DETECTED; HUMAN METAPNEUMOVIRUS NOT DETECTED; INFLUENZA A- RESP PCR PANEL NOT DETECTED; INFLUENZA B - RESP PCR PANEL NOT DETECTED; M. PNEUMONIAE- RESP PCR PANEL NOT DETECTED; PARAINFLUENZA VIRUS 1 NOT DETECTED; PARAINFLUENZA VIRUS 2 NOT DETECTED; PARAINFLUENZA VIRUS 3 NOT DETECTED; PARAINFLUENZA VIRUS 4 NOT DETECTED; RHINOVIRUS/ENTEROVIRUS NOT DETECTED; RSV- RESP PCR PANEL NOT DETECTED; SARS-CoV-2 -RESP PCR PANEL NOT DETECTED
[2021-01-22] MEDS: ACETAMINOPHEN 1,000 MG/100 ML 100 ML IV PRN ×3 (04:15→18:46)
[2021-01-22] MEDS: SODIUM CHLORIDE FLUSH 0.9% 10 ML SYRINGE IVP SCH ×2 (04:15→06:32)
[2021-01-22] MEDS: D5NS W/20 MEQ KCL 1,000 ML IV SCH ×3 (04:33→18:52)
[2021-01-22 04:59] LABS: BASOPHILS % (AUTO) 0.1 %; EOSINOPHILS % (AUTO) 0.3 %; HCT - HEMATOCRIT 39.2 % (42.0-52.0); HGB - HEMOGLOBIN 12.9 g/dL (14.0-18.0); LYMPHOCYTES # (AUTO) 2.2 10^3/uL (1.5-3.5); LYMPHOCYTES % (AUTO) 31.9 %; MEAN CORPUSCULAR HEMOGLOBIN 27.5 pg (27.0-31.0); MEAN CORPUSCULAR HGB CONC 32.9 g/dL (32.0-36.0); MEAN CORPUSCULAR VOLUME 83.6 fL (80.0-94.0); MONOCYTES # (AUTO) 0.8 10^3/uL (0.0-1.0); MONOCYTES % (AUTO) 11.3 %; NEUTROPHILS # (AUTO) 3.8 10^3/uL (1.5-6.6); NEUTROPHILS % (AUTO) 56.1 %; PLT - PLATELET COUNT 428 10^3/uL (130-450); RED BLOOD COUNT 4.69 10^6/uL (4.70-6.10); RED CELL DISTRIBUTION WIDTH 13.5 % (12.0-15.0); WHITE BLOOD COUNT 6.8 x10^3/uL (4.8-10.8)
[2021-01-22 05:10] LABS: ALBUMIN/GLOBULIN RATIO 1.1 (1.0-2.2); BILIRUBIN,TOTAL 0.9 mg/dL (0.2-1.0); CALCIUM 9.4 mg/dL (8.5-10.3); CREATININE 1.3 mg/dL (0.6-1.2); POTASSIUM 3.6 mmol/L (3.5-5.0); TOTAL PROTEIN 7.5 g/dL (6.7-8.2)
[2021-01-22] MEDS: methocarbamoL 500 MG TABLET PO SCH ×3 (06:29→17:48)
[2021-01-22] MEDS: METOCLOPRAMIDE 10 MG/2 ML VIAL IVP SCH ×3 (06:32→17:48)
[2021-01-22] MEDS: PANTOPRAZOLE 40 MG VIAL IVP SCH (06:32)
--- NOTE | 2021-01-22 08:29 | XRAY Report ---
PROCEDURE: Chest 1 View X-Ray INDICATIONS: NG tube placement TECHNIQUE: One view of the chest was acquired. COMPARISON: 01/22/2021 CT abdomen and pelvis FINDINGS: Surgical changes and devices: Enteric tube terminates just past the GE junction. Consider advancement by 4 cm. Lungs and pleura: No pleural effusions or pneumothorax. Lungs are clear. Mediastinum: Mediastinal contours appear normal. Heart size is normal. Bones and chest wall: No suspicious bony lesions. Overlying soft tissues appear unremarkable. IMPRESSION: Enteric tube terminates just distal to the GE junction. Consider approximately 4 cm advancement. Reviewed by: Brandon Corley MD on 01/22/2021 8:27 AM PDT Approved by: Brandon Corley MD on 01/22/2021 8:27 AM PDT Station ID: [id number]
--- NOTE | 2021-01-22 08:50 | CT Report ---
PROCEDURE: Abdomen/Pelvis W INDICATIONS: Abdominal pain, acute, nonlocalized CONTRAST: IV CONTRAST: Optiray 320 ml: 100 PO CONTRAST: Isovue 300 ml50 TECHNIQUE: After the administration of oral and intravenous contrast, 5 mm thick sections acquired from the diap hragms to the symphysis. 5 mm thick coronal and sagittal reformats were acquired. For radiation dos e reduction, the following was used: automated exposure control, adjustment of mA and/or kV accordin g to patient size. COMPARISON: CT abdomen and pelvis with contrast, 11/27/2020. FINDINGS: Image quality: Excellent. ABDOMEN: Lung bases: Lung bases are clear. Heart size is normal. There is a small hiatal hernia. Solid organs: Liver and spleen are normal in size and enhancement. Gallbladder is normal. Biliary system is non dilated. Pancreas enhances normally. No adrenal nodules. Kidneys demonstrate normal size and enhancement, without hydronephrosis. Peritoneum and bowel: There are postsurgical changes in the right lower quadrant involving the cecum and distal ileum. Mild stranding in the surgical bed. There is a trace amount of fluid in the right p aracolic gutter. No free air. Small bowel loops are mildly distended and filled with fluid measuring up to 3.2 cm in diameter. Concentric thickening in a short segments of small intestine the right lowe r quadrant there is surgical clip. There are a few air-fluid levels in small intestine. There is smal l bowel caliber change with transitional point in the distal ileum consistent with small bowel obstru ction. There are scattered colonic diverticula in sigmoid colon. No CT findings to suggest acute dive rticulitis. Nodes and vessels: No retroperitoneal or mesenteric adenopathy by size criteria. Aorta and inferior vena cava are normal in size. Miscellaneous: No ventral hernias. PELVIS: Genitourinary: Bladder wall thickness is normal. Miscellaneous: No inguinal hernias or adenopathy. Bones: No suspicious bony lesions. No vertebral body compression fractures. Degenerative disc dise ase or spine, most pronounced at L5-S1 where left paramedian disc protrusion is present causing sever e central canal stenosis. IMPRESSION: 1. Small bowel obstruction. The transitional point is in the distal ileum. 2. Surgical changes in the right lower quadrant. 3. Diverticulosis sigmoid colon without diverticulitis. No significant discrepancy with the preliminary interpretation. Reviewed by: Lauren Salazar MD on 01/22/2021 8:49 AM PDT Approved by: Lauren Salazar MD on 01/22/2021 8:49 AM PDT Station ID: [id number]
[2021-01-22] MEDS: ENOXAPARIN 40 MG/0.4 ML SYRINGE SUBQ SCH (09:28)
--- NOTE | 2021-01-22 14:26 | PHARMACY PROGRESS NOTE ---
- Best Possible Medication History Admit Date and Time: 01/22/21 0313 Processed by: Pharmacy Medication History completed: Yes Patient Interview: Completed Secondary Source(s): Spouse/Significant other As the person ultimately responsible for medication therapy, providers are able to order a medication from an existing home medication list in [facility] via the "Reconcile Routine" prior to Confirmation of that medication by student support advisor. Such practice is discouraged except when the physician, in their clinical judgment, deems that a medical need exists for a medication without regard to previous use.
--- NOTE | 2021-01-22 15:30 | SURGERY HX AND PHYSICAL(T) ---
Surgical History & Physical - Chief Complaint/HPI Chief Complaint: Nausea and vomiting History of Present Illness: 45-year-old male status post recent attempted CELS (combined endoscopic laparoscopic surgery) for endoscopically unresectable ileocecal valve polyp. Consistent on pathology with adenomatous changes, this could not be performed even with laparoscopic assistance endoscopically, thus we proceeded with laparoscopic right colectomy. This procedure was performed with an intracorporeal anastomosis and a wide common channel and no concern for leak after ultimate closure of common channels. Patient had a brief hospital stay and was discharged home without any complication. Pathology returned as adenomatous changes with no concerns for malignancy. Approximately 1 month postop, patient developed nausea vomiting and abdominal spasm. He presented to the emergency room with concerns for small bowel obstruction. Please see CAT scan below. CT abdomen pelvis impression: 1. Small bowel obstruction with abrupt caliber change in the right midabdomen adjacent to surgical anastomosis - PMH/PSH/Social Hx Does the pt have a hx of MRSA?: No Neurological History: None Eyes, Ears, Nose, Throat: None Cardiovascular: None Respiratory: Sleep apnea, CPAP use Skin: None Endocrine/Autoimmune: None Gastrointestinal: None Urinary: None Musculoskeletal: Osteoarthritis Psychiatric: None General: Colonoscopy, Other Smoking Status: Never smoker Does the pt drink ETOH?: No Does the pt have substance abuse?: No - Home Meds and Allergies Allergies/Adverse Reactions: Allergies Allergy/AdvReac Type Severity Reaction Status Date / Time No Known Drug Allergies Allergy Verified 01/21/21 23:54 - Review of Systems Constitutional: Fatigue. No: Fever, Chills, Malaise HEENT: No: Headaches Respiratory: No: Shortness of breath, Cough Gastrointestinal: Nausea, Vomiting. No: Difficulty swallowing, Abdominal pain, Constipation, Diarrhea, Hematochechezia Gentinourinary: No: Dysuria Neurological: No: Dizziness, Headache, Syncope - Vital Signs Heart Rate: 69 Blood Pressure: 143/103 Temperature: 36.7 C Respiratory Rate: 18 O2 Saturation: 99 Weight (kg): 104 kg Height: 1.83 m - Physical Exam General Appearance: positive: No acute distress, Alert Eyes Bilatera: positive: Normal inspection, PERRL, EOMI ENT: positive: ENT inspection nml Neck: positive: Nml inspection Respiratory: positive: Chest non-tender, No respiratory distress, Breath sounds nml. negative: Wheezes, Rales, Rhonchi Cardiovascular: positive: Regular rate & rhythm Abdomen: negative: Non-tender, No organomegaly, No distention, Tenderness, Guarding, Rebound Extremities: positive: Non-tender, Full ROM, Nml appearance. negative: Pedal edema Neurologic/Psychiatric: positive: Oriented x3, CN's nml (2-12), Motor nml, Sensation nml, Mood/affect nml - Patient Review Patient Review: Problems were reviewed with the patient during this visit. Medications were reviewed with the patient during this visit. Allergies were reviewed this patient during this visit. Pertinent Tests Reviewed: All pertitent test for this patient were reviewed. - Assessment & Plan Assessment and Plan: 45-year-old male with history of right colectomy for unresectable ileocecal valve polyp ultimately on pathology consistent with adenoma. Initially attempted for CELS however secondary to inability to resect even with laparoscopic assistance patient was performed for right colectomy with intracorporeal anastomosis. He presents with small bowel obstruction with associated obstipation. This appears to be associated with an anastomotic stricture although common channel was wide in a full length of the [address] [facility]. No peritoneal signs at this time. Plan as follows: 1. bowel rest, nasogastric decompression, IV fluid resuscitation. 2. Serial abdominal exams, plain film imaging, possible repeat imaging with CT and contrast challenge. 3. May need operative intervention if fails conservative management. Will follow closely. May consider colonoscopic evaluation with possible [id number] pneumatic dilatation. 4. Electrolytes normal at this time we will continue to monitor them with daily lab draws.
[2021-01-23] MEDS: SODIUM CHLORIDE FLUSH 0.9% 10 ML SYRINGE IVP SCH ×3 (00:07→16:31)
[2021-01-23] MEDS: METOCLOPRAMIDE 10 MG/2 ML VIAL IVP SCH ×4 (00:07→17:53)
[2021-01-23] MEDS: methocarbamoL 500 MG TABLET PO SCH ×5 (00:31→20:20)
[2021-01-23] MEDS: ACETAMINOPHEN 1,000 MG/100 ML 100 ML IV PRN (00:38)
[2021-01-23] MEDS: D5NS W/20 MEQ KCL 1,000 ML IV SCH ×3 (02:55→20:14)
[2021-01-23 04:33] LABS: BASOPHILS % (AUTO) 0.2 %; EOSINOPHILS # (AUTO) 0.1 10^3/uL (0.0-0.7); HCT - HEMATOCRIT 38.6 % (42.0-52.0); HGB - HEMOGLOBIN 12.3 g/dL (14.0-18.0); LYMPHOCYTES # (AUTO) 1.6 10^3/uL (1.5-3.5); LYMPHOCYTES % (AUTO) 32.7 %; MEAN CORPUSCULAR HEMOGLOBIN 27.4 pg (27.0-31.0); MEAN CORPUSCULAR HGB CONC 31.9 g/dL (32.0-36.0); MEAN PLATELET VOLUME 10.7 fL (7.4-11.4); MONOCYTES # (AUTO) 0.6 10^3/uL (0.0-1.0); MONOCYTES % (AUTO) 11.8 %; NEUTROPHILS # (AUTO) 2.7 10^3/uL (1.5-6.6); NEUTROPHILS % (AUTO) 54.1 %; PLT - PLATELET COUNT 372 10^3/uL (130-450); RED BLOOD COUNT 4.49 10^6/uL (4.70-6.10); RED CELL DISTRIBUTION WIDTH 13.6 % (12.0-15.0)
[2021-01-23 04:45] LABS: ALBUMIN 3.7 g/dL (3.2-5.5); ALBUMIN/GLOBULIN RATIO 1.1 (1.0-2.2); BILIRUBIN,TOTAL 0.5 mg/dL (0.2-1.0); CALCIUM 8.9 mg/dL (8.5-10.3); CREATININE 1.1 mg/dL (0.6-1.2)
[2021-01-23] MEDS: PANTOPRAZOLE 40 MG VIAL IVP SCH (06:16)
[2021-01-23] MEDS: ENOXAPARIN 40 MG/0.4 ML SYRINGE SUBQ SCH (07:58)
[2021-01-23] MEDS ORDERED: ACETAMINOPHEN 500 MG TABLET PO PRN (12:34)
--- NOTE | 2021-01-23 14:56 | ANESTHESIA ---
Pre-Anesthesia VS, & Labs - Diagnosis small bowel obstruction - Procedure colonoscopy Vital Signs: Temp Pulse Resp BP Pulse Ox 36.7 C 69 18 143/103 H 99 01/23/21 11:00 01/23/21 11:00 01/23/21 11:00 01/23/21 11:00 01/23/21 11:00 Height: 6 ft Weight (kg): 104 kg Body Mass Index: 31.1 BMI Classification: Obese - NPO >8 hours - Lab Results Current Lab Results: Laboratory Tests 01/23/21 11:59: POC Whole Bld Glucose 114 H 01/23/21 04:02: Sodium 137, Potassium 4.0, Chloride 103, Carbon Dioxide 25, Anion Gap 9.0, BUN 7, Creatinine 1.1, Estimated GFR (MDRD) 87 L, Glucose 136 H, Calcium 8.9, Total Bilirubin 0.5, AST 12, ALT 10, Alkaline Phosphatase 62, Total Protein 7.0, Albumin 3.7, Globulin 3.3, Albumin/Globulin Ratio 1.1 01/23/21 04:02: WBC 5.0, RBC 4.49 L, Hgb 12.3 L, Hct 38.6 L, MCV 86.0, MCH 27.4, MCHC 31.9 L, RDW 13.6, Plt Count 372, MPV 10.7, Neut # (Auto) 2.7, Lymph # (Auto) 1.6, [place] # (Auto) 0.6, Eos # (Auto) 0.1, Baso # (Auto) 0.0, Absolute Nu cleated RBC 0.00, Nucleated RBC % 0.0 01/23/21 00:11: POC Whole Bld Glucose 128 H 01/22/21 18:45: POC Whole Bld Glucose 128 H 01/22/21 04:15: Sodium 133 L, Potassium 3.6, Chloride 98 L, Carbon Dioxide 23, Anion Gap 12.0, BUN 13, Creatinine 1.3 H, Estimated GFR (MDRD) 72 L, Glucose 124 H, Calcium 9.4, Total Bilirubin 0.9, AST 12, ALT 12, Alkaline Phosphatase 61, Total Protein 7.5, Albumin 4.0, Globulin 3.5, Albumin/Globulin Ratio 1.1 01/22/21 04:15: WBC 6.8, RBC 4.69 L, Hgb 12.9 L, Hct 39.2 L, MCV 83.6, MCH 27.5, MCHC 32.9, RDW 13.5, Plt Count 428, MPV 11.0, Neut # (Auto) 3.8, Lymph # (Auto) 2.2, [place] # (Auto) 0.8, Eos # (Auto) 0.0, Baso # (Auto) 0.0, Absolute Nucleated RBC 0.00, Nucleated RBC % 0.0 01/22/21 00:15: Sodium 134 L, Potassium 3.6, Chloride 97 L, Carbon Dioxide 24, Anion Gap 13.0, BUN 13, Creatinine 1.3 H, Estimated GFR (MDRD) 72 L, Glucose 132 H, Calcium 9.4, Total Bilirubin 0.8, AST 14, ALT 13, Alkaline Phosphatase 65, Total Protein 8.0, Albumin 4.3, Globulin 3.7, Albumin/Globulin Ratio 1.2, Lipase 28 01/22/21 00:15: WBC 5.6, RBC 4.99, Hgb 13.9 L, Hct 41.6 L, MCV 83.4, MCH 27.9, MCHC 33.4, RDW 13.4, Plt Count 441, MPV 10.5, Neut # (Auto) 3.3, Lymph # (Auto) 1.7, [place] # (Auto) 0.6, Eos # (Auto) 0.0, Baso # (Auto) 0.0, Absolute Nucleated RBC 0.00, Nucleated RBC % 0.0 Fish Bones: 01/23/21 04:02 01/23/21 04:02 Home Medications and Allergies Active Medications Acetaminophen (Acetaminophen 500 Mg Tablet) 500 mg PO Q4HR PRN PRN Reason: Pain or Fever > 38C (100.4F) Enoxaparin Sodium (Enoxaparin 40 Mg/0.4 Ml Syringe) 40 mg SUBQ DAILY LIZETT Last Admin: 01/23/21 07:58 Dose: Not Given Documented by: Hydromorphone HCl (Hydromorphone 0.5 Mg/0.5 Ml Syringe) 0.5 mg IVP Q2H PRN PRN Reason: Pain 8 to 10 Potassium Chloride/Dextrose/Sod Cl (D5ns W/20 Meq Kcl) 1,000 mls @ 125 mls/hr IV .Q8H LIZETT Last Admin: 01/23/21 10:59 Dose: 125 mls/hr Documented by: Methocarbamol (Methocarbamol 500 Mg Tablet) 500 mg PO 0200,0800,1400,2000 [facility] Last Admin: 01/23/21 14:51 Dose: Not Given Documented by: Metoclopramide HCl (Metoclopramide 10 Mg/2 Ml Vial) 10 mg IVP Q6HR [facility] Last Admin: 01/23/21 11:07 Dose: 10 mg Documented by: Ondansetron HCl (Ondansetron 4 Mg/2 Ml Vial) 4 mg IVP Q6HR PRN PRN Reason: Nausea / Vomiting Pantoprazole Sodium (Pantoprazole 40 Mg Vial) 40 mg IVP QDAC [facility] Last Admin: 01/23/21 06:16 Dose: 40 mg Documented by: Sodium Chloride (Sodium Chloride Flush 0.9% 10 Ml Syringe) 10 ml IVP 0100,0900,1700 [facility] Last Admin: 01/23/21 07:59 Dose: 10 ml Documented by: Sodium Chloride (Sodium Chloride Flush 0.9% 10 Ml Syringe) 10 ml IVP PRN PRN PRN Reason: NEEDED PER PROVIDER ORDERS Allergies/Adverse Reactions: Allergies Allergy/AdvReac Type Severity Reaction Status Date / Time No Known Drug Allergies Allergy Verified 01/21/21 23:54 Anes History & Medical History - Anesthetic History Anesthesia Complications: reports: No previous complications - Medical History Cardiovascular: reports: None Pulmonary: reports: Sleep apnea, CPAP use Gastrointestinal: reports: None Urinary: reports: None Neuro: reports: None Musculoskeletal: reports: Osteoarthritis Endocrine/Autoimmune: reports: None Blood Disorders: reports: None Skin: reports: None Smoking Status: Never smoker Psychosocial: reports: No issues indicated History of Cancer?: No - Surgical History General: reports: Colonoscopy, Other Exam General: Alert, Oriented x3, Cooperative, No acute distress Dental: WNL Mouth Openin Fingerbreadth Neck Mobility: Normal Mallampati classification: III Thyromental Distance: 4-6 cm Mental/Cognitive Status: Alert/Oriented X3, Normal for patient Plan Anesthesia Type: MAC Consent for Procedure(s) Verified and Reviewed: Yes Code Status: Attempt Resuscitation ASA classification: 2-Mild systemic disease Is this case an emergency?: No
[2021-01-23] MEDS ORDERED: PROPOFOL 500 MG/50 ML 500 MG/50 ML VIAL ONE ×2 (17:34→18:44)
[2021-01-23] MEDS ORDERED: fentaNYL 100 MCG/2 ML VIAL ONE ×4 (17:35→22:07)
[2021-01-23] MEDS ORDERED: LABETALOL 5 MG/1 ML 20 ML MDV ONE (18:55)
--- NOTE | 2021-01-23 19:37 | PROVIDER PROGRESS NOTE ---
Progress Note 45-year-old male status post laparoscopic right colectomy with intracorporeal anastomosis side to side isoperistaltic functional end-to-end for unresectable polyp that failed endoscopic as well as CELS intervention. Approximately 1 month postoperatively developed a small bowel obstruction for which she is admitted. CAT scan showed no fluid no air however showed a transition shown at the anastomosis. Today attempted colonoscopy to evaluate. Patient had moderate resumption of bowel function today. Colonoscopic findings: 1. Minimal retained stool 2. Throughout viable colon to the anastomosis 3. At the colonic portion of the anastomosis narrowing revealed multiple staple lines throughout which it was challenging to determine which was the true lumen. 4. Wire passed through 1 sinus tract which was serially dilated however with no return of bilious content. 5. Patient had abdominal distention post procedurally concerning for likely contained perforation 6. Deferred further intervention to advised patient and that he will need revision. Plan going forward is as follows: 1. Maintain n.p.o. 2. IV antibiotics 3. Plan laparotomy with anastomotic revision 4. Continued Inpatient care
[2021-01-23] MEDS ORDERED: VECURONIUM 10 MG VIAL ONE ×2 (20:06→22:54)
[2021-01-23] MEDS ORDERED: WATER FOR INJECTION,STERILE 10 ML MC ONE ×2 (20:06→22:54)
[2021-01-23] MEDS ORDERED: PROPOFOL 200 MG/20 ML VIAL IVP ONE (20:06)
[2021-01-23] MEDS: HYDROmorphone 0.5 MG/0.5 ML SYRINGE IVP PRN (20:12)
[2021-01-23] MEDS ORDERED: PIPERACILLIN/TAZOBACTAM 3.375 GM in SODIUM CHLORIDE 0.9% MINIBAG 100 ML IV ONE (21:00)
[2021-01-23] MEDS ORDERED: MIDAZOLAM 2 MG/2 ML VIAL ONE (21:11)
[2021-01-23] MEDS ORDERED: LACTATED RINGERS 1,000 ML IV ONE (21:32)
[2021-01-23] MEDS ORDERED: ROPIVACAINE 0.5% PF 20 ML AMPULE ONE (23:04)
[2021-01-23] MEDS ORDERED: DEXAMETHASONE 4 MG/ML VIAL ONE (23:07)
[2021-01-23] MEDS ORDERED: SUGAMMADEX 200 MG/2 ML VIAL IVP ONE (23:11)
[2021-01-23] MEDS ORDERED: HYDROmorphone 1 MG/ML CARPUJECT ONE (23:18)
[2021-01-23] MEDS ORDERED: SODIUM CHLORIDE FLUSH 0.9% 10 ML SYRINGE IVP PRN (23:35)
[2021-01-23] MEDS ORDERED: ALBUTEROL NEB 2.5 MG/3 ML INH PRN (23:35)
[2021-01-23] MEDS ORDERED: IPRATROPIUM 0.2 MG/ML NEB INH PRN (23:35)
[2021-01-23] MEDS ORDERED: LACTATED RINGERS 1,000 ML IV SCH (23:45)
[2021-01-23] MEDS ORDERED: ONDANSETRON 4 MG/2 ML VIAL IVP PRN (23:52)
[2021-01-23] MEDS ORDERED: LABETALOL 20 MG/4 ML SYRINGE IVP PRN (23:52)
[2021-01-23] MEDS ORDERED: fentaNYL 100 MCG/2 ML VIAL IVP PRN (23:52)
[2021-01-23] MEDS ORDERED: HYDROmorphone 0.5 MG/0.5 ML SYRINGE IVP PRN (23:52)
[2021-01-23] MEDS ORDERED: MORPHINE 2 MG/ML CARPUJECT IVP PRN (23:52)
[2021-01-23] MEDS ORDERED: ATROPINE ABBOJECT 1 MG/10 ML SYRINGE IVP PRN (23:52)
[2021-01-23] MEDS ORDERED: ACETAMINOPHEN 1,000 MG/100 ML 100 ML IV ONE (23:52)
[2021-01-23] MEDS ORDERED: hydrALAZINE INJ 20 MG/ML VIAL IVP PRN (23:52)
[2021-01-23] MEDS ORDERED: NALOXONE 0.4 MG/ML VIAL IVP PRN (23:52)
--- NOTE | 2021-01-23 23:55 | OPERATIVE REPORT ---
Operative Report - General Admit Date: 01/22/21 Procedure Date: 01/23/21 Planned Procedure: 1. Exploratory laparotomy 2. Abdominal washout 3. Planned anastomotic revision 4. Segmental colectomy and partial small bowel resection 5. 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 Exploratory laparotomy 2. Abdominal washout 3. Extensive lysis of adhesions, open 4. Anastomotic revision and takedown 5. Completion right colectomy with en bloc partial small bowel resection 6. Closure of mesenteric defect 7. Partial omentectomy 8. Seprafilm placement 9. Placement of Prevena wound VAC Post Op Diagnosis: Same; extensive adhesions throughout the abdomen; suspected fistula; viable - Procedure Note Primary Surgeon: Kari Secondary Surgeon: Tripp Anesthesia Provider: Rich Anesthesia Technique: General ET tube, Local Pathology: 1. Anastomosis, hepatic flexure with transverse colon, terminal ileum 2. Proximal small bowel margin Estimated Blood Loss (mL): 150 Drain/Tube Type: Castillo drain Indications: 1. Small bowel obstruction 2. Failure to improve nonoperatively 3. Colonoscopy with a nontraversable anastomotic stricture 4. Failure of pneumatic dilation exposure 5. Increasing abdominal pain Findings: 1. Extensive adhesions 2. Dense fibrotic reaction 3. Viable anastomosis status post 2 fires of the Endo MATTHIEU 4. Widely patent 5. Mesenteric window closed 6. Decompressed small bowel 7. No abscess spillage or other complication Complications: None - Other Other Information/Narrative: Pending
[2021-01-24] MEDS ORDERED: HYDROmorphone 1 MG/ML CARPUJECT ONE (00:11)
[2021-01-24] MEDS: HYDROmorphone 0.5 MG/0.5 ML SYRINGE IVP PRN ×9 (00:15→20:42)
[2021-01-24 00:21] LABS: MAGNESIUM 1.7 mg/dL (1.7-2.8); PHOSPHORUS 4.8 mg/dL (2.5-4.6)
[2021-01-24] MEDS: METOCLOPRAMIDE 10 MG/2 ML VIAL IVP SCH ×5 (00:55→23:47)
[2021-01-24] MEDS: PIPERACILLIN/TAZOBACTAM 3.375 GM in SODIUM CHLORIDE 0.9% MINIBAG 100 ML IV SCH ×3 (01:09→16:48)
[2021-01-24] MEDS: SODIUM CHLORIDE FLUSH 0.9% 10 ML SYRINGE IVP SCH ×6 (01:10→23:47)
[2021-01-24] MEDS: methocarbamoL 500 MG TABLET PO SCH ×4 (02:24→20:50)
[2021-01-24 04:56] LABS: BASOPHILS % (AUTO) 0.1 %; EOSINOPHILS % (AUTO) 1.9 %; HGB - HEMOGLOBIN 13.7 g/dL (14.0-18.0); LYMPHOCYTES % (AUTO) 5.6 %; MEAN CORPUSCULAR HEMOGLOBIN 28.1 pg (27.0-31.0); MEAN CORPUSCULAR HGB CONC 32.6 g/dL (32.0-36.0); MEAN CORPUSCULAR VOLUME 86.1 fL (80.0-94.0); MEAN PLATELET VOLUME 10.6 fL (7.4-11.4); MONOCYTES % (AUTO) 5.2 %; NEUTROPHILS % (AUTO) 87.1 %; PLT - PLATELET COUNT 409 10^3/uL (130-450); RED BLOOD COUNT 4.88 10^6/uL (4.70-6.10); RED CELL DISTRIBUTION WIDTH 13.5 % (12.0-15.0); WHITE BLOOD COUNT 9.9 x10^3/uL (4.8-10.8)
[2021-01-24 04:59] LABS: ABNORMAL LYMPHS % (MANUAL) 0 %
[2021-01-24 05:10] LABS: ALBUMIN 3.4 g/dL (3.2-5.5); ALBUMIN/GLOBULIN RATIO 1.1 (1.0-2.2); BILIRUBIN,TOTAL 0.6 mg/dL (0.2-1.0); CALCIUM 8.7 mg/dL (8.5-10.3); CREATININE 1.2 mg/dL (0.6-1.2); MAGNESIUM 1.6 mg/dL (1.7-2.8); PHOSPHORUS 4.7 mg/dL (2.5-4.6); POTASSIUM 4.2 mmol/L (3.5-5.0); TOTAL PROTEIN 6.6 g/dL (6.7-8.2)
[2021-01-24 05:22] LABS: BAND NEUTROPHILS % (MANUAL) 12 %; LYMPHOCYTES # (MANUAL) 0.4 10^3/uL (1.5-3.5); LYMPHOCYTES % (MANUAL) 4 %; MONOCYTES # (MANUAL) 0.4 10^3/uL (0.0-1.0); NEUTROPHILS # (MANUAL) 9.1 10^3/uL (1.5-6.6); PLATELET ESTIMATE, MANUAL NORMAL (130-450,000) (NORMAL); PLATELET MORPHOLOGY NORMAL APPEARANCE (NORMAL); RBC MORPHOLOGY (MULTIPLE) NORMAL APPEARANCE (NORMAL); WBC MORPHOLOGY (MULTIPLE) NORMAL APPEARANCE (NORMAL)
[2021-01-24 05:23] LABS: DIFFERENTIAL COMMENT MANUAL DIFFERENTIAL
[2021-01-24] MEDS ORDERED: MAGNESIUM SULFATE 2 GRAM 2 GM/50 ML BAG IV ONE (05:50)
[2021-01-24] MEDS: D5NS W/20 MEQ KCL 1,000 ML IV SCH ×2 (06:58→08:24)
[2021-01-24] MEDS: PANTOPRAZOLE 40 MG VIAL IVP SCH (07:02)
[2021-01-24] MEDS: ACETAMINOPHEN 1,000 MG/100 ML 100 ML IV PRN ×2 (08:21→18:36)
[2021-01-24] MEDS: DOCUSATE SODIUM 100 MG CAPSULE PO SCH ×2 (08:52→21:01)
[2021-01-24] MEDS: CELECOXIB 100 MG CAPSULE PO SCH ×2 (08:52→21:01)
[2021-01-24] MEDS: HEPARIN 5,000 UNIT/ML VIAL SUBQ SCH ×2 (09:21→20:59)
[2021-01-24] MEDS: polyethylene glycoL 3350 17 GM PACKET PO SCH ×2 (09:37→21:01)
[2021-01-24] MEDS: PREGABALIN 100 MG CAPSULE PO SCH ×2 (09:41→21:01)
[2021-01-24] MEDS: METOPROLOL 5 MG/5 ML VIAL IVP SCH ×2 (16:20→23:47)
--- NOTE | 2021-01-24 16:28 | ANESTHESIA POST OP EVALUATION ---
Anesthesia Post Eval - Post Anesthesia Eval Vitals: Last Vital Signs Temp 37 C 01/24/21 16:14 Pulse 90 01/24/21 16:25 Resp 14 01/24/21 16:25 BP 139/105 H 01/24/21 16:25 Pulse Ox 98 01/24/21 16:25 CV Function Including HR & BP: positive: Stable Pain Control: positive: Satisfactory Nausea & Vomiting: positive: Negative Mental Status: positive: Baseline Respiratory Status: Airway Patent Hydration Status: Satisfactory Anesthesia Complications: positive: None
[2021-01-24] MEDS: ENALAPRILAT 1.25 MG/ML VIAL IVP SCH ×2 (17:41→23:48)
--- NOTE | 2021-01-24 18:37 | PROVIDER PROGRESS NOTE ---
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 Patient had been maintained for bowel rest and nasogastric tube decompression. CT imaging was consistent with what was likely anastomotic stricture with coloscopic findings as per below. Colonoscopic findings: 1. Minimal retained stool 2. Throughout viable colon to the anastomosis 3. At the colonic portion of the anastomosis narrowing revealed multiple staple lines throughout which it was challenging to determine which was the true lumen. 4. Wire passed through 1 sinus tract which was serially dilated however with no return of bilious content. 5. Patient had abdominal distention post procedurally concerning for likely contained perforation 6. Deferred further intervention to advised patient and that he will need revision. He is postoperative day #1 status post reoperative intervention for anastomotic takedown completion right colectomy redo ileocolic anastomosis and laparotomy. He was maintained in the ICU overnight and is feeling exceedingly better today. Successful trial of void. Objective General Appearance: positive: No acute distress Eyes Bilateral: positive: Normal inspection ENT: positive: ENT inspection nml Neck: positive: Nml inspection Respiratory: positive: Chest non-tender, No respiratory distress, Breath sounds nml. negative: Wheezes, Rales, Rhonchi Cardiovascular: positive: Regular rate & rhythm Abdomen: positive: No distention, Other. negative: Guarding, Rebound Extremities: positive: Non-tender, Full ROM, Nml appearance Neurologic/Psychiatric: positive: Oriented x3, CN's nml (2-12) Abdomen appropriately tender, drain serosanguineous, Prevena wound VAC clean dry and intact. Abdomen soft. No rebound no guarding. Impression/Plan Postoperative day #1, hospital day #3 for small bowel obstruction secondary to significant anastomotic stricture not traversable necessitating reoperative intervention. Patient appropriate for transfer out of the ICU to the floor. (1) GI - IVF, bowel regimen, PPN, advance diet as tolerated. GI ppx. Anticipate ileus. Opiate sparring analgesia. (2) SURGERY - Continue drain, continue Prevena wound VAC, start PPN however anticipate ileus to be short lived.. (3) Renal/Lytes - continue IVF. Renal indices within normal limits. (4) Respiratory - O2 as necessary. Continue IS. (5) Heme - Will continue with DVT ppx. H/H stable. (6) Cardiovascular - HD acceptable. (7) Neuro - Opiate sparring analgesia. Antispasmodics with Robaxin. Neuropathic agents. (8) Immune/Infectious Disease - Continue IV antibiotics with Zosyn. 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 Exploratory laparotomy 2. Abdominal washout 3. Extensive lysis of adhesions, open 4. Anastomotic revision and takedown 5. Completion right colectomy with en bloc partial small bowel resection 6. Closure of mesenteric defect 7. Partial omentectomy 8. Seprafilm placement 9. Placement of Prevena wound VAC Post Op Diagnosis: Same; extensive adhesions throughout the abdomen; suspected fistula; viable
[2021-01-24] MEDS ORDERED: TRACE ELEMENTS IV SCH ×2 (19:00)
[2021-01-24] MEDS ORDERED: FAT EMULSION 20% 250 ML IV SCH (19:00)
[2021-01-24] MEDS ORDERED: PPN IV SCH ×2 (19:00)
[2021-01-25] MEDS: ACETAMINOPHEN 1,000 MG/100 ML 100 ML IV PRN (00:41)
[2021-01-25] MEDS: methocarbamoL 500 MG TABLET PO SCH ×4 (00:43→19:19)
[2021-01-25] MEDS: PIPERACILLIN/TAZOBACTAM 3.375 GM in SODIUM CHLORIDE 0.9% MINIBAG 100 ML IV SCH ×3 (01:01→16:30)
[2021-01-25] MEDS: ENALAPRILAT 1.25 MG/ML VIAL IVP SCH ×2 (05:20→13:57)
[2021-01-25 05:47] LABS: BASOPHILS % (AUTO) 0.3 %; EOSINOPHILS # (AUTO) 0.1 10^3/uL (0.0-0.7); EOSINOPHILS % (AUTO) 1.3 %; HCT - HEMATOCRIT 36.9 % (42.0-52.0); HGB - HEMOGLOBIN 11.9 g/dL (14.0-18.0); LYMPHOCYTES # (AUTO) 1.5 10^3/uL (1.5-3.5); LYMPHOCYTES % (AUTO) 19.4 %; MEAN CORPUSCULAR HEMOGLOBIN 27.4 pg (27.0-31.0); MEAN CORPUSCULAR HGB CONC 32.2 g/dL (32.0-36.0); MEAN PLATELET VOLUME 10.6 fL (7.4-11.4); MONOCYTES # (AUTO) 0.7 10^3/uL (0.0-1.0); MONOCYTES % (AUTO) 8.6 %; NEUTROPHILS # (AUTO) 5.4 10^3/uL (1.5-6.6); PLT - PLATELET COUNT 316 10^3/uL (130-450); RED BLOOD COUNT 4.34 10^6/uL (4.70-6.10); RED CELL DISTRIBUTION WIDTH 14.1 % (12.0-15.0); WHITE BLOOD COUNT 7.7 x10^3/uL (4.8-10.8)
[2021-01-25 05:59] LABS: ALBUMIN 3.2 g/dL (3.2-5.5); ALBUMIN/GLOBULIN RATIO 0.9 (1.0-2.2); BILIRUBIN,TOTAL 0.7 mg/dL (0.2-1.0); CALCIUM 8.5 mg/dL (8.5-10.3); CREATININE 1.1 mg/dL (0.6-1.2); PHOSPHORUS 2.6 mg/dL (2.5-4.6); POTASSIUM 3.6 mmol/L (3.5-5.0); TOTAL PROTEIN 6.6 g/dL (6.7-8.2)
[2021-01-25] MEDS: METOPROLOL 5 MG/5 ML VIAL IVP SCH ×2 (06:22→14:01)
[2021-01-25] MEDS: PANTOPRAZOLE 40 MG VIAL IVP SCH (06:23)
[2021-01-25] MEDS: D5NS W/20 MEQ KCL 1,000 ML IV SCH (06:23)
[2021-01-25] MEDS: METOCLOPRAMIDE 10 MG/2 ML VIAL IVP SCH ×3 (06:23→18:26)
[2021-01-25] MEDS: polyethylene glycoL 3350 17 GM PACKET PO SCH ×2 (09:02→21:06)
[2021-01-25] MEDS: PREGABALIN 100 MG CAPSULE PO SCH ×2 (09:02→21:06)
[2021-01-25] MEDS: HEPARIN 5,000 UNIT/ML VIAL SUBQ SCH ×2 (09:02→21:05)
[2021-01-25] MEDS: DOCUSATE SODIUM 100 MG CAPSULE PO SCH ×2 (09:02→21:06)
[2021-01-25] MEDS: SODIUM CHLORIDE FLUSH 0.9% 10 ML SYRINGE IVP SCH ×2 (09:02→18:23)
[2021-01-25] MEDS: CELECOXIB 100 MG CAPSULE PO SCH ×2 (09:02→21:06)
--- NOTE | 2021-01-25 15:26 | PROVIDER PROGRESS NOTE ---
Subjective - Prog Note Date Prog Note Date: 01/25/21 - Subjective Pt reports feeling: Improved (tolerating soft diet. some burping. denies nausea) Objective - Vital Signs/Intake & Output Vital Signs: Vital Signs x48h Temp Pulse Resp BP BP Pulse Ox 01/25/21 14:01 136/95 H 01/25/21 11:17 37.1 C 87 18 136/93 H 98 01/25/21 07:39 36.7 C 87 18 134/85 H 97 01/25/21 07:30 73 145/97 H Intake & Output: Intake & Output 01/22/21 01/23/21 01/24/21 01/25/21 23:59 23:59 23:59 23:59 Intake Total 3139.584 3145.834 1910 670 Output Total 850 2325 1235 1675 Balance 2289.584 820.834 675 -1005 - Objective General Appearance: positive: No acute distress, Alert Eyes Bilateral: positive: Normal inspection, PERRL, EOMI ENT: positive: No signs of dehydration Neck: positive: No JVD Respiratory: positive: No respiratory distress Abdomen: positive: Non-tender, No distention, Other (dressing c/d/i. no erythema drain thin serosanguinous) - Lab Results Fish Bones: 01/25/21 05:35 01/25/21 05:35 Other Labs: Lab Results x24hrs 01/25/21 01/25/21 01/25/21 Range/Units 11:11 05:35 05:35 WBC (4.8-10.8) x10^3/uL RBC (4.70-6.10) 10^6/uL Hgb (14.0-18.0) g/dL Hct (42.0-52.0) % MCV (80.0-94.0) fL MCH (27.0-31.0) pg MCHC (32.0-36.0) g/dL RDW (12.0-15.0) % Plt Count (130-450) 10^3/uL MPV (7.4-11.4) fL Neut # (Auto) (1.5-6.6) 10^3/uL Lymph # (Auto) (1.5-3.5) 10^3/uL [place] # (Auto) (0.0-1.0) 10^3/uL Eos # (Auto) (0.0-0.7) 10^3/uL Baso # (Auto) (0.0-0.1) 10^3/uL Absolute Nucleated RBC x10^3/uL Nucleated RBC % /100WBC Sodium 134 L (135-145) mmol/L Potassium 3.6 (3.5-5.0) mmol/L Chloride 101 (101-111) mmol/L Carbon Dioxide 25 (21-32) mmol/L Anion Gap 8.0 (6-13) BUN 11 (6-20) mg/dL Creatinine 1.1 (0.6-1.2) mg/dL Estimated GFR (MDRD) 87 L (>89) Glucose 127 H (70-100) mg/dL POC Whole Bld Glucose 122 H (70 - 100) mg/dL Calcium 8.5 (8.5-10.3) mg/dL Phosphorus 2.6 (2.5-4.6) mg/dL Magnesium 2.0 (1.7-2.8) mg/dL Total Bilirubin 0.7 (0.2-1.0) mg/dL AST 15 (10-42) IU/L ALT 16 (10-60) IU/L Alkaline Phosphatase 50 (42-121) IU/L Total Protein 6.6 L (6.7-8.2) g/dL Albumin 3.2 (3.2-5.5) g/dL Globulin 3.4 (2.1-4.2) g/dL Albumin/Globulin Ratio 0.9 L (1.0-2.2) Prealbumin 15 L (18-45) mg/dL Triglycerides 215 H ( - 149) mg/dL Vitamin B12 454 (180-914) pg/mL 01/25/21 01/24/21 01/24/21 Range/Units 05:35 23:45 16:46 WBC 7.7 (4.8-10.8) x10^3/uL RBC 4.34 L (4.70-6.10) 10^6/uL Hgb 11.9 L (14.0-18.0) g/dL Hct 36.9 L (42.0-52.0) % MCV 85.0 (80.0-94.0) fL MCH 27.4 (27.0-31.0) pg MCHC 32.2 (32.0-36.0) g/dL RDW 14.1 (12.0-15.0) % Plt Count 316 (130-450) 10^3/uL MPV 10.6 (7.4-11.4) fL Neut # (Auto) 5.4 (1.5-6.6) 10^3/uL Lymph # (Auto) 1.5 (1.5-3.5) 10^3/uL [place] # (Auto) 0.7 (0.0-1.0) 10^3/uL Eos # (Auto) 0.1 (0.0-0.7) 10^3/uL Baso # (Auto) 0.0 (0.0-0.1) 10^3/uL Absolute Nucleated RBC 0.00 x10^3/uL Nucleated RBC % 0.0 /100WBC Sodium (135-145) mmol/L Potassium (3.5-5.0) mmol/L Chloride (101-111) mmol/L Carbon Dioxide (21-32) mmol/L Anion Gap (6-13) BUN (6-20) mg/dL Creatinine (0.6-1.2) mg/dL Estimated GFR (MDRD) (>89) Glucose (70-100) mg/dL POC Whole Bld Glucose 151 H 153 H (70 - 100) mg/dL Calcium (8.5-10.3) mg/dL Phosphorus (2.5-4.6) mg/dL Magnesium (1.7-2.8) mg/dL Total Bilirubin (0.2-1.0) mg/dL AST (10-42) IU/L ALT (10-60) IU/L Alkaline Phosphatase (42-121) IU/L Total Protein (6.7-8.2) g/dL Albumin (3.2-5.5) g/dL Globulin (2.1-4.2) g/dL Albumin/Globulin Ratio (1.0-2.2) Prealbumin (18-45) mg/dL Triglycerides ( - 149) mg/dL Vitamin B12 (180-914) pg/mL Assessment/Plan - Problem List (1) Mass of colon Impression: improving after extended right hemicolectomy. ileus improved. still present. continue antibiotics today home tomorrow if ileus nearly resolved
[2021-01-25] MEDS ORDERED: oxyCODONE 5 MG TABLET PO PRN (15:28)
[2021-01-25] MEDS ORDERED: MAG HYDROX/AL HYDROX/SIMETH 30 ML UDC PO PRN (15:29)
[2021-01-25] MEDS ORDERED: METOPROLOL TARTRATE 25 MG TABLET PO PRN (15:30)
[2021-01-26] MEDS: METOCLOPRAMIDE 10 MG/2 ML VIAL IVP SCH ×3 (00:24→11:31)
[2021-01-26] MEDS: PIPERACILLIN/TAZOBACTAM 3.375 GM in SODIUM CHLORIDE 0.9% MINIBAG 100 ML IV SCH ×2 (00:35→08:50)
[2021-01-26] MEDS: methocarbamoL 500 MG TABLET PO SCH ×2 (00:36→08:19)
[2021-01-26] MEDS: SODIUM CHLORIDE FLUSH 0.9% 10 ML SYRINGE IVP SCH ×2 (00:36→08:54)
[2021-01-26] MEDS: D5NS W/20 MEQ KCL 1,000 ML IV SCH (04:41)
[2021-01-26 05:55] LABS: BASOPHILS % (AUTO) 0.4 %; EOSINOPHILS # (AUTO) 0.2 10^3/uL (0.0-0.7); EOSINOPHILS % (AUTO) 3.7 %; HCT - HEMATOCRIT 30.7 % (42.0-52.0); HGB - HEMOGLOBIN 9.8 g/dL (14.0-18.0); LYMPHOCYTES # (AUTO) 1.6 10^3/uL (1.5-3.5); LYMPHOCYTES % (AUTO) 28.2 %; MEAN CORPUSCULAR HEMOGLOBIN 27.1 pg (27.0-31.0); MEAN CORPUSCULAR HGB CONC 31.9 g/dL (32.0-36.0); MEAN PLATELET VOLUME 10.5 fL (7.4-11.4); MONOCYTES # (AUTO) 0.6 10^3/uL (0.0-1.0); MONOCYTES % (AUTO) 11.3 %; NEUTROPHILS # (AUTO) 3.2 10^3/uL (1.5-6.6); PLT - PLATELET COUNT 231 10^3/uL (130-450); RED BLOOD COUNT 3.61 10^6/uL (4.70-6.10); RED CELL DISTRIBUTION WIDTH 14.1 % (12.0-15.0); WHITE BLOOD COUNT 5.7 x10^3/uL (4.8-10.8)
[2021-01-26 06:06] LABS: ALBUMIN 2.8 g/dL (3.2-5.5); ALBUMIN/GLOBULIN RATIO 0.9 (1.0-2.2); BILIRUBIN,TOTAL 0.6 mg/dL (0.2-1.0); CALCIUM 8.4 mg/dL (8.5-10.3); CREATININE 1.1 mg/dL (0.6-1.2); POTASSIUM 3.5 mmol/L (3.5-5.0); TOTAL PROTEIN 5.8 g/dL (6.7-8.2)
[2021-01-26] MEDS: PREGABALIN 100 MG CAPSULE PO SCH (08:49)
[2021-01-26] MEDS: DOCUSATE SODIUM 100 MG CAPSULE PO SCH (08:49)
[2021-01-26] MEDS: CELECOXIB 100 MG CAPSULE PO SCH (08:49)
[2021-01-26] MEDS: HEPARIN 5,000 UNIT/ML VIAL SUBQ SCH (08:50)
[2021-01-26] MEDS: polyethylene glycoL 3350 17 GM PACKET PO SCH (08:54)
[2021-01-26 11:47] VITALS: BP 140/91
--- NOTE | 2021-01-26 12:17 | Discharge Plan ---
Discharge Plan Problem Reviewed?: Yes Disposition: Home, Self Care Condition: Good Diet: Regular Activity Restrictions: Activity as Tolerated Shower Restrictions: No Driving Restrictions: No Plan of Treatment: diet and activities as tolerated Assessment: doing well after colectomy Additional Instructions or Follow Up instructions: call the office and make a follow up appointment [phone] No Smoking: If you smoke, Please STOP! Call for help. Follow-up with: LEXI SANTIZO, MSN, [employer] [Primary Care Provider] -
--- NOTE | 2021-01-26 12:20 | DISCHARGE SUMMARY ---
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 progressive small bowel obstruction requiring completion right hemicolectomy - CONSULTS | PROCEDURES Procedures: 01/23/2021 completion right hemicolectomy - HOSPITAL COURSE Hospital Course: as above. admitted with progressive small bowel obstruction requiring laparotomy and completion right colectomy. ileus quickly resolved and home toleration diet - ALLERGIES Allergies/Adverse Reactions: Allergies Allergy/AdvReac Type Severity Reaction Status Date / Time No Known Drug Allergies Allergy Verified 01/21/21 23:54 - MEDICATIONS Home Medications: Ambulatory Orders Medication Instructions Recorded Confirmed polyethylene glycoL 3350 [Miralax] 17 gm PO BID packet 01/01/21 01/22/21 - PHYSICAL EXAM AT DISCHARGE General Appearance: positive: No acute distress, Alert Eyes Bilateral: positive: Normal inspection, PERRL, EOMI ENT: positive: No signs of dehydration Neck: positive: No JVD Respiratory: positive: No respiratory distress Abdomen: positive: Non-tender, No distention, Other (dressing c/d/i. no erythema. allyson thin serosanguinous) Neurologic/Psychiatric: positive: Oriented x3 - LABS Result Diagrams: 01/26/21 05:48 01/26/21 05:48 - QUALITY (Female Hip Fx Only) Was patient sent home on osteoporosis medication?: No - FOLLOW UP Follow Up: please call the office and make an appointment for this coming week/ few days from now [phone]"
== END 2021-01-26 12:45 | disposition home or self-care (01) | DRG 329 ==
LOC: ED 23:41 → MS2 01-22 03:13 → ICU 01-23 23:42 → MS2 01-24 22:23
PROVIDERS: ADMIT Surgery; ATTEND Surgery
PROC: 0DTF0ZZ Resection of Right Large Intestine, Open Approach (ICD-10-PCS; 2021-01-23)
PROC: 0DNE0ZZ Release Large Intestine, Open Approach (ICD-10-PCS; 2021-01-23)
PROC: 0DN80ZZ Release Small Intestine, Open Approach (ICD-10-PCS; 2021-01-23)
PROC: 0DBU0ZZ Excision of Omentum, Open Approach (ICD-10-PCS; 2021-01-23)
PROC: 0DB80ZZ Excision of Small Intestine, Open Approach (ICD-10-PCS; 2021-01-23)
PROC: 0D7E8ZZ Dilation of Large Intestine, Via Natural or Artificial Opening Endoscopic (ICD-10-PCS; principal; 2021-01-23 15:15)
DX: K56.609 Unspecified intestinal obstruction, unspecified as to partial versus complete obstruction (principal); K63.1 Perforation of intestine (nontraumatic); K66.0 Peritoneal adhesions (postprocedural) (postinfection); G47.30 Sleep apnea, unspecified; Z20.822 Contact with and (suspected) exposure to COVID-19; E66.9 Obesity, unspecified; Z68.31 Body mass index [BMI] 31.0-31.9, adult
CPT/HCPCS: 0202U; 36415; 43753; 71045; 74177; 80053; 82306; 82607; 83690; 83735; 84100; 84134; 84478; 85025; 87150; 96374; 96375; 97116; 97161; 97165; 97530; 99285; A9270; J0131; J1170; J2765; J3490; J7120; Q9967; 88304; 88307

== ENCOUNTER 2021-03-18 11:26 | Outpatient (CLI) | payer OTHER ==
[2021-03-18] MEDS ORDERED: IOPAMIDOL-300 100 ML VIAL ONE (11:30)
[2021-03-18] MEDS ORDERED: IOPAMIDOL-300 50 ML VIAL ONE (11:30)
[2021-03-18] MEDS ORDERED: IOPAMIDOL-300 100 ML VIAL IVP ONE (12:44)
[2021-03-18] MEDS ORDERED: IOPAMIDOL-300 50 ML VIAL PO ONE (12:44)
--- NOTE | 2021-03-18 15:56 | CT Report ---
PROCEDURE: Abdomen/Pelvis W INDICATIONS: POSTPROCEDURAL PARTIAL INTESTINAL OBSTRUCTION CONTRAST: IV CONTRAST: Isovue 300 ml: 100 PO CONTRAST: Isovue 300 ml50 TECHNIQUE: After the administration of nonionic contrast, 5 mm thick sections acquired from the diaphragms to th e symphysis. 5 mm thick coronal and sagittal reformats were acquired. For radiation dose reduction, the following was used: automated exposure control, adjustment of mA and/or kV according to patient size. COMPARISON: None. FINDINGS: Image quality: Excellent. ABDOMEN: Lung bases: Lung bases are clear. Heart size is normal. Solid organs: Liver and spleen are normal in size and enhancement. Gallbladder appears partially co ntracted, seen centered on series 3 image 36. Biliary system is non dilated. Pancreas enhances norm ally. No adrenal nodules. Kidneys demonstrate normal size and enhancement, without hydronephrosis. Peritoneum and bowel: Bowel loops demonstrate normal wall thickness and caliber. No free fluid or a ir. At the midline of the anterior peritoneal space in the epigastrium there is a vertically oriente d heterogeneous calcified and noncalcified structure having a craniocaudad length of up to 11.8 cm, a nd a maximal axial dimension of approximately 3.3 cm AP and 2.5 cm transverse. This is indeterminant in etiology, and is unusual. It conceivably could represent calcification within a area of prior hemo rrhage. It does not have definite imaging characteristics of a retained foreign body but that also sh ould be considered. Nodes and vessels: No retroperitoneal or mesenteric adenopathy by size criteria. Aorta and inferior vena cava are normal in size. Miscellaneous: No ventral hernias. PELVIS: Genitourinary: Bladder wall thickness is normal. Miscellaneous: No inguinal hernias or adenopathy. Bones: No suspicious bony lesions. No vertebral body compression fractures. IMPRESSION: No sign of intestinal obstruction or perforation. There is an unusual calcified anterior midline epigastrium abnormality measuring up to 3.3 x 2.5 x 11.8 cm comprised of calcified and nonca lcified material. This conceivably could represent calcification within a hematoma or some form of fo reign body. It is not a typical postoperative finding. Please correlate clinically. Additional plain film frontal view imaging through this area may be warranted to determine if it can't be visualized b y plain film imaging. Reviewed by: Sergio Terry MD on 03/18/2021 3:55 PM PDT Approved by: Sergio Terry MD on 03/18/2021 3:55 PM PDT Station ID: [id number]
== END 2021-03-18 11:27 | disposition home or self-care (01) ==
LOC: DI 11:26
PROVIDERS: ATTEND Surgery
DX: R93.5 Abnormal findings on diagnostic imaging of other abdominal regions, including retroperitoneum (principal)
CPT/HCPCS: 74177; Q9967

== ENCOUNTER 2021-03-21 10:58 | Outpatient (CLI) | payer OTHER | END 2021-03-21 10:59 | disposition home or self-care (01) | LOC: NS 10:58 | PROVIDERS: ATTEND Nurse Practitioner Family | DX: Z71.3 Dietary counseling and surveillance (principal); R19.4 Change in bowel habit; K91.31 Postprocedural partial intestinal obstruction | CPT/HCPCS: 97802 ==

== ENCOUNTER 2021-10-08 20:31 | Emergency (ER) | payer OTHER ==
--- NOTE | 2021-10-08 21:02 | ED Physician Documentation ---
PD HPI BACK PAIN - Stated complaint Stated Complaint: LOW LT BACK PX - Chief complaint Chief Complaint: Back Pain - History obtained from History obtained from: Patient - History of Present Illness Timing - onset: How many days ago (3) Timing - duration: Days Timing - details: Gradual onset, Constant Location: Other (perianal) Quality: Pain Associated symptoms: No: Fever Worsened by: Palpation - Additional information Additional information: c/o 3 days of gradually enlarging and increasingly painful focal swelling left perianal area. Denies h/o similar symptoms. Denies fever Review of Systems Constitutional: denies: Fever Skin: reports: Lesions (perianal) Musculoskeletal: denies: Back pain PD PAST MEDICAL HISTORY - Past Medical History Past Medical History: Yes Cardiovascular: None Respiratory: Sleep apnea, CPAP use Neuro: None Endocrine/Autoimmune: None GI: None : None HEENT: None Psych: None Musculoskeletal: None, Osteoarthritis Derm: None Other Past Medical History: anal fissure - Past Surgical History Past Surgical History: Yes General: Colonoscopy, Other - Present Medications Home Medications: Ambulatory Orders Medication Instructions Recorded Confirmed Clindamycin [Cleocin] 450 mg PO TID #63 cap 10/08/21 - Allergies Allergies/Adverse Reactions: Allergies Allergy/AdvReac Type Severity Reaction Status Date / Time No Known Drug Allergies Allergy Verified 10/08/21 20:35 - Social History Does the pt smoke?: No Smoking Status: Never smoker Does the pt drink ETOH?: No Does the pt have substance abuse?: No PD ED PE NORMAL - Vitals Vital signs reviewed: Yes - General General: Alert and oriented X 3, No acute distress, Well developed/nourished PD ED PE EXPANDED - Male Male visual: 1 - abscess (approximately 1cm diameter abscess; firm, tender, with sharp, palpable margins) Results - Vitals Vitals: Oxygen O2 Source Room air PD MEDICAL DECISION MAKING - ED course Complexity details: considered differential, d/w patient ED course: small perianal abscess. It is too small at this time to warrant I+D, will trial antibiotics with instructions to expect improvement within 2-3 days, return if worse, follow up with PMD if not improving within 2-3 days into the course of a ntibiotics Departure - Departure Disposition: 01 Home, Self Care Clinical Impression: Perianal abscess Condition: Good Instructions: ED [place] Anal Abscess Abx Only Prescriptions: Clindamycin [Cleocin] 450 mg PO TID #63 cap Comments: Follow up with either your primary care provider or your general surgeon; try to arrange follow up for 3-5 days for recheck of the area. There should be improvement within 2-3 days into the antibiotic course. The antibiotic prescription has been electronically submitted to [facility] in [place] Discharge Date/Time: 10/08/21 22:03
[2021-10-08] MEDS ORDERED: CLINDAMYCIN 150 MG CAPSULE PO STA (21:40)
[2021-10-08 22:04] VITALS: BP 152/89
== END 2021-10-08 22:03 | disposition home or self-care (01) ==
LOC: ED 20:31
DX: K61.0 Anal abscess (principal)
CPT/HCPCS: 99282; 99283; A9270

== ENCOUNTER 2024-02-04 07:05 | Day surgery (SDC) | payer OTHER ==
[2024-02-04] MEDS: LACTATED RINGERS 1,000 ML IV ONE ×2 (07:17→09:18)
--- NOTE | 2024-02-04 07:33 | ANESTHESIA ---
Pre-Anesthesia VS, & Labs - Diagnosis screening - Procedure colonoscopy Vital Signs: Temp Pulse Resp BP Pulse Ox O2 Flow Rate 36.0 C L 60 16 123/91 H 100 02/04/24 07:25 02/04/24 07:25 02/04/24 07:25 02/04/24 07:25 02/04/24 07:25 Height: 6 ft Weight (kg): 105 kg Body Mass Index: 31.4 BMI Classification: Obese - NPO Other (prep as t at 530) Home Medications and Allergies Allergies/Adverse Reactions: Allergies Allergy/AdvReac Type Severity Reaction Status Date / Time No Known Drug Allergies Allergy Verified 02/04/24 07:34 Anes History & Medical History - Anesthetic History Anesthesia Complications: reports: No previous complications - Medical History Cardiovascular: reports: Murmur Pulmonary: reports: Sleep apnea, CPAP use Gastrointestinal: reports: None Urinary: reports: None Neuro: reports: None Musculoskeletal: reports: Osteoarthritis Endocrine/Autoimmune: reports: None Blood Disorders: reports: None Skin: reports: Eczema Smoking Status: Never smoker Psychosocial: reports: Alcohol (rare) - Surgical History General: reports: Colonoscopy, Other Exam General: Alert, Oriented x3, Cooperative Dental: WNL Mouth Opening: Greater than 4 Fingerbreadths Neck Mobility: Normal Mallampati classification: I Thyromental Distance: greater than 6 cm Respiratory: Lungs clear Cardiovascular: Regular rate, Normal S1, Normal S2 Plan Anesthesia Type: Total IV Consent for Procedure(s) Verified and Reviewed: Yes Code Status: Attempt Resuscitation ASA classification: 1-Healthy patient Is this case an emergency?: No
[2024-02-04] MEDS ORDERED: PROPOFOL 500 MG/50 ML 500 MG/50 ML VIAL ONE (08:03)
--- NOTE | 2024-02-04 08:41 | HISTORY & PHYSICAL EXAMINATION ---
Chief Complaint - Chief Complaint Chief Complaint: here for colonoscopy History of Present Illness - History Obtained From Records Reviewed: yes History obtained from: pt Exam Limitations: none - History of Present Illness HPI Comment/Other: history 2 large polyps cecum and polyp splenic flexure. required right partial colectomy 3 years ago. history anal fistula. no problems following surgery. no gi symptoms History - Past Medical History Cardiovascular: reports: Murmur Respiratory: reports: Sleep apnea, CPAP use Neuro: reports: None Endocrine/Autoimmune: reports: None GI: reports: None : reports: None HEENT: reports: None Psych: reports: None Musculoskeletal: reports: Osteoarthritis Derm: reports: Eczema MRSA Hx?: No - Past Surgical History General: reports: Colonoscopy, Other Meds/Allgy - Allergies Allergies/Adverse Reactions: Allergies Allergy/AdvReac Type Severity Reaction Status Date / Time No Known Drug Allergies Allergy Verified 02/04/24 07:34 Review of Systems - Other Findings Other Findings: 10 pt ros as above otherwise unremarkable Exam - Vital Signs Vital Signs: Vital Signs x48h Temp Pulse Resp BP Pulse Ox 02/04/24 07:25 36.0 C L 60 16 123/91 H 100 - Physical Exam General Appearance: positive: No acute distress, Alert Eyes Bilateral: positive: PERRL, EOMI ENT: positive: No signs of dehydration Neck: positive: No JVD, Trachea midline Respiratory: positive: No respiratory distress Cardiovascular: positive: Regular rate & rhythm Abdomen: positive: No distention Neurologic/Psychiatric: positive: Oriented x3 Conclusion/Plan - Problem List (1) Colon cancer screening Conclusion/Plan: history large adenomas and partial right colectomy 3 years ago. here for surveillance. plan colonoscopy. parq held and consent obtained
[2024-02-04] MEDS ORDERED: LIDOCAINE-PF 2% 10 ML AMP SUBQ ONE (08:44)
--- NOTE | 2024-02-04 09:38 | ANESTHESIA POST OP EVALUATION ---
Anesthesia Post Eval - Post Anesthesia Eval Vitals: Last Vital Signs Temp 36.0 C L 02/04/24 07:25 Pulse 60 02/04/24 07:25 Resp 16 02/04/24 07:25 BP 123/91 H 02/04/24 07:25 Pulse Ox 100 02/04/24 07:25 O2 Flow Rate CV Function Including HR & BP: Stable Pain Control: Satisfactory Nausea & Vomiting: Negative Mental Status: Baseline Respiratory Status: Airway Patent Hydration Status: Satisfactory Anesthesia Complications: None
[2024-02-04 09:55] VITALS: BP 174/86; O2SAT 98
== END 2024-02-04 07:06 | disposition home or self-care (01) ==
LOC: SDS 07:05
PROVIDERS: ATTEND Surgery
DX: Z12.11 Encounter for screening for malignant neoplasm of colon (principal); Z86.010 Personal history of colon polyps; G47.30 Sleep apnea, unspecified
CPT/HCPCS: 45378; J7120